=== PATIENT | female | born 1955 | race Caucasian/White ===

== ENCOUNTER 2017-11-26 14:06 | Emergency (ER) | payer MEDICARE ==
[2017-11-26] MEDS ORDERED: Morphine INJ* 2 MG/ML 1 ML CARPUJECT IV ONE (14:24)
[2017-11-26] MEDS ORDERED: NS 0.9% 1000 ML* 1,000 ML IV SCH (14:30)
--- NOTE | 2017-11-26 15:11 | RAD ---
HISTORY: Right hand and wrist injury, trauma COMPARISONS: None VIEWS: 7, Frontal, lateral, and oblique views of the right hand and wrist FINDINGS: BONE DENSITY: Normal. BONES: There is a comminuted fracture of the distal radial metaphysis with articular extension with dorsal angulation of approximately 30 degrees . JOINTS: There is osteoarthritis of the first CMC, MCP, and interphalangeal joint. ALIGNMENT: There is no dislocation. SOFT TISSUES: Unremarkable. OTHER FINDINGS: None. IMPRESSION: 1. ANGULATED COMMINUTED FRACTURE OF THE DISTAL RADIAL METAPHYSIS. 2. OSTEOARTHRITIS
[2017-11-26] MEDS ORDERED: Lidocaine 1% INJ* 10 MG/ML 30 ML SDV ONE (15:57)
--- NOTE | 2017-11-26 16:57 | RAD ---
HISTORY: Right wrist postreduction COMPARISONS: November 26, 2017 at 2:40 PM VIEWS: 2, Frontal and lateral views of the right wrist performed in a cast which obscures fine bone detail at 4:28 PM FINDINGS: BONE DENSITY: Normal. BONES: Again noted is a fracture of the distal radial metaphysis with articular extension. There has been interval reduction of the angulation. JOINTS: Again noted is osteoarthritis of the first CMC joint. ALIGNMENT: There is no dislocation. SOFT TISSUES: Unremarkable. OTHER FINDINGS: None. IMPRESSION: INTERVAL REDUCTION OF THE ANGULATION OF THE DISTAL RADIAL FRACTURE
[2017-11-26 17:25] VITALS: BP 112/76
--- NOTE | 2017-11-26 17:27 | ED ---
John Tomlin Jennifer, scribed for Dank Arevalo MD on 11/26/17 at 1426 . Upper Extremity Pain - HPI Summary HPI Summary: The patient is a 62 year old female who present with right wrist pain after she tripped over her cart today. She describes that movement of her fingers aggravates the pain, especially her right thumb, but sensation is still intact. - History of Current Complaint Stated Complaint: WRIST INJURY Hx Obtained From: Patient Mechanism Of Injury: Fall From A Standing Position Onset/Duration: Still Present Timing: Constant Severity Initially: Mild Severity Currently: None Pain Location: Wrist, Other: - Thumb Aggravating Factor(s): Movement Alleviating Factor(s): Nothing - Allergies/Home Medications Allergies/Adverse Reactions: Allergies Allergy/AdvReac Type Severity Reaction Status Date / Time MS Acetaminophen Allergy Intermediate See Comment Verified 09/18/13 13:30 [From Darvocet-N] MS Erythromycin Allergy Intermediate See Comment Verified 09/18/13 13:30 [Erythromycin] MS Propoxyphene Allergy Intermediate See Comment Verified 09/18/13 13:30 [From Darvocet-N] PMH/Surg Hx/FS Hx/Imm Hx Cardiovascular History: Reports: Hx Hypertension Neurological History: Reports: Hx Seizures - Surgical History Surgery Procedure, Year, and Place: Brain surgery x2 r/t epilesy per pt. - Family History Known Family History: Negative: Diabetes - Social History Substance Use Type: Reports: Other. Denies: Cocaine Review of Systems Positive: Other - Right wrist pain Negative: Numbness All Other Systems Reviewed And Are Negative: Yes Physical Exam - Summary Physical Exam Summary: Appearance: Cachectic appearance. Skin: Warm, Dry, No rash Eyes: Normal, PERRL, EOMI, sclera anicteric ENT: Normal Neck: Supple, nontender Respiratory: Clear to auscultation Cardiovascular: S1, S2, no murmur, no rub, no gallop Abdomen: Soft, nontender, no organomegaly Bowel sounds: Present Extremities: obvious deformity of right wrist. Ulnar, median, radial aspect sensation normal. Flexion of fingers normal. Musculoskeletal: Normal, Strength/ROM Intact, no edema, pulses symmetrical Neurological: Normal, A&Ox3, cranial nerves II-XII WNL, follows commands, gait not tested, sensation intact to pin and light touch Psychiatric: affect normal, behavior appropriate, dressed appropriately, judgment intact Triage Information Reviewed: Yes Vital Signs On Initial Exam: Initial Vitals BP 137/88 11/26/17 14:20 Vital Signs Reviewed: Yes Diagnostics - Vital Signs Vital Signs Temp Pulse Resp BP Pulse Ox 11/26/17 17:22 79 91 11/26/17 17:21 112/76 11/26/17 17:00 161/83 11/26/17 16:30 145/84 11/26/17 16:28 60 100 11/26/17 16:00 62 126/80 100 11/26/17 15:30 59 139/78 100 11/26/17 15:05 18 11/26/17 15:00 60 125/66 100 11/26/17 14:30 63 128/70 99 11/26/17 14:22 69 97 11/26/17 14:21 36.4 C 64 20 137/88 99 11/26/17 14:20 137/88 - Laboratory Lab Statement: Any lab studies that have been ordered have been reviewed, and results considered in the medical decision making process. - Radiology Hand XR Xray Interpretation: Positive (See Comments) - 1. ANGULATED COMMINUTED FRACTURE OF THE DISTAL RADIAL METAPHYSIS. 2. OSTE[address]IS. Dr. Arevalo has reviewed this report. Radiology Interpretation Completed By: Radiologist Wrist XR 1 Xray Interpretation: Positive (See Comments) - 1. ANGULATED COMMINUTED FRACTURE OF THE DISTAL RADIAL METAPHYSIS. 2. [address] Dr. Arevalo has reviewed this report. Radiology Interpretation Completed By: Radiologist Wrist XR 2 Xray Interpretation: Positive (See Comments) - INTERVAL REDUCTION OF THE ANGULATION OF THE DISTAL RADIAL FRACTURE. Dr. Arevalo has reviewed this report. Radiology Interpretation Completed By: Radiologist Course/Dx - Course Assessment/Plan: The patient is a 62 year old female who present with right wrist pain after she tripped over her cart today. In the ED course the patient was given Morphine and IV fluids. Wrist and hand X-rays showed 1. ANGULATED COMMINUTED FRACTURE OF THE DISTAL RADIAL METAPHYSIS. 2. OSTEOARTHRITIS. A second wrist X-ray showed INTERVAL REDUCTION OF THE ANGULATION OF THE DISTAL RADIAL FRACTURE. The patient is diagnosed with radial fracture of wrist. The patient is instructed to follow up with Dr. Diaz, orthopedic surgeon. The patient is prescribed oxycodone for the pain. - Diagnoses Provider Diagnoses: Fracture of radius near wrist Discharge - Discharge Plan Condition: Good Disposition: HOME Discharge Disposition Comment: to home , follow up with Dr. Diaz Prescriptions: Oxycodone HCl/Acetaminophen [Percocet 5-325 mg Tablet] 1 each PO Q8HR PRN 8 Days #25 tablet MDD 3 PRN Reason: Pain Patient Education Materials: Wrist Fracture in Adults (ED) Referrals: Laura Perez MD [Primary Care Provider] - Bennie Diaz MD [Medical Doctor] - 3 Days Additional Instructions: referral to Dr. Diaz for f/u. The documentation as recorded by the John goldsmith Jennifer accurately reflects the service I personally performed and the decisions made by me, Dank Arevalo MD.
--- NOTE | 2017-11-27 01:17 | CONS ---
ORTHOPEDIC CONSULTATION: DATE OF CONSULT: 11/26/17 REQUESTING SERVICE: Emergency room. CONSULTING SERVICE: Orthopedics. ATTENDING PHYSICIAN: Bennie Diaz MD CHIEF COMPLAINT: Right wrist pain. 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 She reports pain and deformity of the right wrist. Denies any other injury or pain anywhere else. Denies any numbness or tingling. She is right-handed. Pain is located at the wrist and is constant, moderate, sharp, worse with motion, and improved with rest. There is associated swelling and bruising. PAST MEDICAL HISTORY: Seizure disorder, hypertension, lupus, and anemia. PAST SURGICAL HISTORY: Brain surgery x2 for her seizures, calcification removed from her right arm, cholecystectomy. MEDICATIONS: 1. Ranitidine. 2. Zonisamide. 3. Oxcarbazepine. 4. Gabapentin. ALLERGIES: ACETAMINOPHEN, ERYTHROMYCIN, PROPOXYPHENE. FAMILY HISTORY: Noncontributory. SOCIAL HISTORY: She is a retired nurse. She used to work in [place] and [place]. Nonsmoker. REVIEW OF SYSTEMS: Negative for recent fever, visual changes, difficulty swallowing, chest pain, shortness of breath, abdominal pain, hematuria, easy bruising, diffuse weakness or lack of coordination, and diffuse rash. PHYSICAL EXAM: Constitutional: Her general appearance is healthy, nonseptic, and in no acute distress. Vital Signs: Pulse rate 62, oxygen saturation 100% on room air, blood pressure 126/80, respiratory rate 18. Cardiovascular: Pulse examination demonstrates positive radial pulses with brisk capillary refill. There are no varicosities. Abdomen: Soft and nontender. Lymphatic: No lymphadenopathy appreciated. Skin: Bilateral upper and lower examination revealed no ulcerative lesions. Psych/Neuro: Appropriate affect. Alert and oriented to person, place, and time. There is no significant abnormality and coordination appreciated. Normal reflexes and deep tendon reflexes in the affected extremity. Musculoskeletal: Bilateral lower extremities and contralateral upper extremities show full range of motion with no evidence of instability, no tenderness to palpation, and 5/5 strength. There is no gross deformity. In the right upper extremity, she is intact to light touch sensation. There swelling, edema, or varicosities. There is an obvious deformity with some local swelling and bruising at the wrist. Skin and nails are normal to inspection without evidence of RSD or lymphadenopathy. She is tender to palpation at the distal radius with obvious deformity. Shoulder and elbow have full painless passive and active range of motion. She has 5/5 strength with EPL, OP, first ROSHAN. Sensation is intact to light touch in the radial, median, ulnar nerve distributions, and she has a palpable radial pulse. DIAGNOSTIC STUDIES: X-rays were independently interpreted and do show a displaced distal radius fracture. IMPRESSION AND PLAN: A 62-year-old right-hand dominant woman status post mechanical fall with a right displaced distal radius fracture. The diagnosis and prognosis were reviewed. At this time, I have recommended a hematoma block at the fracture site and a closed reduction and splinting. We discussed the risks and the benefits of both these procedures at length and she decided that she would like to move forward with these. Verbal consent was obtained. PROCEDURE NOTE: 5 cc of 1% lidocaine was injected in to the distal radius fracture site under sterile condition. This provided excellent anesthesia and the skin was covered in sterile dressing afterwards. Once her pain was under control, I performed a closed reduction of her distal radius with traction and reduction maneuver. A dorsal volar splint was not applied and covered with an Marty wrap. We will get postreduction films to confirm the reduction. I will plan on seeing her back in the office next week with the new x-rays, in the splint. [id number]/[facility] #: [id number] MTDD
== END 2017-11-26 18:04 | disposition home or self-care (01) ==
LOC: ED 14:06
DX: S52.501A Unspecified fracture of the lower end of right radius, initial encounter for closed fracture (principal); W01.0XXA Fall on same level from slipping, tripping and stumbling without subsequent striking against object, initial encounter; Y92.9 Unspecified place or not applicable; Z88.5 Allergy status to narcotic agent; Z88.3 Allergy status to other anti-infective agents
CPT/HCPCS: 25600; 96374; 99282; J2270

== ENCOUNTER 2017-12-03 09:22 | Day surgery (SDC) | payer MEDICARE ==
[~2017-12-03 09:22] MED LIST: Buffered Lidocaine 0.9% SYRIN* 5 ML/SYR SYRINGE INTRADERM ONE; Bupivacaine 0.25% SDV* 30 ML ONE; Famotidine IV* 10 MG/ML 2 ML (20 mg) IV ONE; Lidocaine 1% INJ* 10 MG/ML 30 ML SDV ONE; ROPIVACAINE 5 MG/ML 30 ML BTL (0.5%) ONE
[2017-12-03] MEDS ORDERED: ceFAZolin 2 GM PREMIX (*) 2 GM/50 ML BAG IVPB ONE (09:29)
[2017-12-03] MEDS ORDERED: Famotidine IV* 10 MG/ML 2 ML (20 mg) ONE (09:29)
[2017-12-03] MEDS ORDERED: ROPIVACAINE 5 MG/ML 30 ML BTL (0.5%) ONE (09:59)
[2017-12-03] MEDS ORDERED: Lidocaine 1% MPF* 2 ML VIAL ONE (10:00)
[2017-12-03] MEDS ORDERED: Midazolam* 1 MG/ML 2 ML VIAL (2 MG) ONE (10:01)
[2017-12-03] MEDS ORDERED: fentaNYL* 50 MCG/ML 2 ML VIAL (100 MCG VIAL) ONE (10:01)
[2017-12-03] MEDS ORDERED: DiMENhydriNATE IV* 50 MG/ML VIAL IV PUSH PRN (11:27)
[2017-12-03] MEDS ORDERED: oxyCODONE TAB* 5 MG TAB PO PRN (11:27)
[2017-12-03] MEDS ORDERED: Naloxone* 0.4 MG/ML 1 ML VIAL IV PRN (11:27)
[2017-12-03] MEDS ORDERED: Acetaminophen TAB* 325 MG PO PRN (11:27)
[2017-12-03] MEDS ORDERED: HYDROmorphone INJ* 1 MG/ML CARPUJECT SYRINGE IV PRN (11:27)
[2017-12-03] MEDS ORDERED: Phenylephrine INJ* 10 MG/ML 1 ML VIAL (10 MG) ONE (11:30)
[2017-12-03] MEDS ORDERED: Dexamethasone IV* 4 MG/ML 1 ML (4 MG) ONE (12:08)
[2017-12-03] MEDS ORDERED: Ondansetron INJ* 2 MG/ML VIAL ONE (12:08)
[2017-12-03] MEDS ORDERED: Propofol* 10 MG/ML 20 ML BTL IV PUSH ONE (12:08)
[2017-12-03] MEDS ORDERED: Lidocaine 2% PF * 5 ML VIAL ONE (12:08)
[2017-12-03] MEDS ORDERED: Ketorolac INJ* 30 MG/ML 1 ML VIAL ONE (12:08)
[2017-12-03 13:04] VITALS: BP 168/85
[2017-12-03] MEDS ORDERED: oxyCODONE/Acetamin 5/325 MG* TAB ONE (13:07)
--- NOTE | 2017-12-04 14:58 | RAD ---
INDICATION: Right hand injury, right wrist injury COMPARISONS: November 26, 2012 TECHNIQUE: Fluoroscopy was provided for a surgical procedure. Total fluoroscopy time is: 29 seconds FINDINGS: Spot images demonstrate internal fixation of the distal radius. IMPRESSION: FLUOROSCOPY WAS PROVIDED FOR A SURGICAL PROCEDURE CPT II Codes: 6045F
--- NOTE | 2017-12-06 04:46 | OP ---
DATE OF OPERATION: 12/03/17 - [facility] DATE OF : 51 SURGEON: Gama Jerome MD. SALES SERVICE EXECUTIVE: ROYA Butler. An operator assistant i cementing was needed for the entirety of the procedure to aid in positioning of the arm and retraction. ANESTHESIOLOGIST: Dr. Mistry. ANESTHESIA: Peripheral nerve block with general. PRE-OP DIAGNOSIS: Displaced right, greater than 3-fragment intraarticular distal radius fracture. POST-OP DIAGNOSIS: Displaced right, greater than 3-fragment intraarticular distal radius fracture. OPERATIVE PROCEDURE: Open reduction and internal fixation, right intraarticular , greater than 3-fragment distal radius fracture. INDICATIONS: Lucia is a 62-year-old female who had a displaced intraarticular distal radius fracture. She fractured the arm at some point, may be 10 years ago. The fracture was clearly displaced and extended up intra- articularly. I had talked to Lucia about fixing the fracture, told her that was the best thing to go ahead and try to get it back out to length as it was sitting short and impacted and also dorsally translated. She understood the risks and benefits including the risk of infection and loss of fixation. She wants to proceed. ESTIMATED BLOOD LOSS: 5 mL. COMPLICATIONS: None. FINDINGS: As expected. DESCRIPTION OF PROCEDURE: Lucia was seen in the preoperative holding area. The correct side, site, and procedure were identified. We came back to the operating room and the arm was prepped and draped in the usual fashion. She had received a nerve block. A time-out was performed. I began by making a longitudinal incision over the distal FCR tendon. Dissection was carried down. The sheath was opened and the tendon was retracted ulnarly and the subsheath was opened. The pronator quadratus was exposed and released up to radial margin of the radius and teed back transversely preserving the distal 3 to 4 mm of volar extrinsic capsular ligaments. The fracture site was mobilized and debrided. It was sitting quite bayonetted with significant overlap of the volar cortex. I hung the arm in 10 pounds of traction. We had a very difficult time getting it back out to length. This was possibly related to a prior fracture. I went ahead and had released the brachioradialis tendon. I dissected out the dorsal periosteum on the dorsum of the radius and I went ahead and released this with my tenotomy scissors. After release of the dorsal periosteum, I was able to get the fracture brought out to length after I had hung the arm in 15 pounds of traction. Once I was able to get the volar cortices opposed and reduced anatomically, I went ahead and examined my fracture. It was a longitudinal split through the shaft of the fracture that tapered out a couple of centimeters proximal and did not exit out volarly or ulnarly. I did not want this fracture line to propagate and so I went ahead and placed a 2.7 mm lag screw from radial to ulnar. I had initially tried to place one little bit more distally, but there was not good purchase, and so I came just a bit more proximal and placed the lag screw in countersunk type fashion. It provided excellent compression and really secured the split in the sagittal plane so that the crack cannot propagate. After that was secured, I went ahead and brought in my Synthes variable angle distal radius plate, placed it in the correct position and this was pinned into place. Fluoroscopic imaging confirmed reduction of the fracture and good plate position. I then placed 1 screw in the oblong hole. I then placed another cortical screw and then 2 more cortical screws. All these had excellent purchase. I came distal and placed my distal row screws including 3 in straight locking fashion and the more radial styloid screw as a variable angle locking screw. I then placed the 2 additional screws in the 2 remaining distal holes. These were all locking screws. At this point, I checked my final fluoroscopic imaging. Everything was looking good. The alignment of the bone was very nicely corrected. If she had had a prior malunion, the bone was now in anatomic position. We irrigated out the wound. The pronator was very badly injured, but I did repair some of it with 3-0 Vicryl suture. Subcutaneous tissue was reapproximated with 3-0 Vicryl suture. The skin was closed with 4-0 Monocryl and Steri-Strips. I went ahead and infiltrated the operative area with 0.25% plain Marcaine. The wound was dressed with 4x4 sterile Webril and a volar cockup wrist splint was applied. She was then woken up and taken to the recovery room in stable condition. Tourniquet had been used 250 mmHg throughout the procedure. [id number]/[facility] #: [id number] [facility]OSPITALAna
== END 2017-12-03 13:48 | disposition home or self-care (01) ==
LOC: OREAST 09:22
PROVIDERS: ATTEND Orthopaedic Surgery Hand Surgery
DX: S52.571A Other intraarticular fracture of lower end of right radius, initial encounter for closed fracture (principal); S83.92XA Sprain of unspecified site of left knee, initial encounter; W00.2XXA Other fall from one level to another due to ice and snow, initial encounter; Y92.488 Other paved roadways as the place of occurrence of the external cause; I10 Essential (primary) hypertension; D64.9 Anemia, unspecified; Z72.0 Tobacco use; G89.18 Other acute postprocedural pain; I65.23 Occlusion and stenosis of bilateral carotid arteries
CPT/HCPCS: 76000; A9270-GY; C1713; C1776; J0690; J1100; J1885; J2250; J2405; J2704; J2795; J3010

== ENCOUNTER 2017-12-08 11:39 | Emergency (ER) | payer MEDICARE ==
[2017-12-08 12:12] VITALS: BP 158/86
--- NOTE | 2017-12-08 13:41 | UC ---
Hip/Pelvis Pain - HPI Summary HPI Summary: Pt presents with left hip pain s/p fall 2 weeks ago. She tells me that has a left hip replacement and is worried that something is broken. She has had mild pain in her left buttock and hip since the fall 2 weeks ago where she tells me she had a seizure and fell - breaking her right arm. She was seen in the ED, but her hip did not hurt at the time. Denies numbness, tingling, or weakness. - History Of Current Complaint Chief Complaint: UCLowerExtremity Stated Complaint: HIP INJURY Time Seen by Provider: 12/08/17 13:25 Hx Obtained From: Patient Onset/Duration: Gradual Onset Timing: Constant Severity Initially: Mild Severity Currently: Mild Pain Intensity: 3 Pain Scale Used: 0-10 Numeric Character Of Pain: Dull, Aching Aggravating Factor(s): Movement - Allergies/Home Medications Allergies/Adverse Reactions: Allergies Allergy/AdvReac Type Severity Reaction Status Date / Time acetaminophen Allergy See Comment Verified 12/08/17 12:13 erythromycin base Allergy See Comment Verified 12/08/17 12:13 propoxyphene Allergy See Comment Verified 12/08/17 12:13 Home Medications: Home Medications Alendronate (NF) [Fosamax (NF)] 12/08/17 [History] Ferrous Sulfate 1 tab PO BID 12/08/17 [History Confirmed 12/08/17] Ibuprofen 2 tab PO Q4HR PRN 12/08/17 [History Confirmed 12/08/17] Polyethylene Glycol 3350* [Miralax*] 1 cap PO DAILY PRN 12/08/17 [History Confirmed 12/08/17] Pseudoephedrine HCl [Sudafed] 2 tab PO Q6HR PRN 12/08/17 [History Confirmed ] PMH/Surg Hx/FS Hx/Imm Hx Previously Healthy: Yes Endocrine History: Dyslipidemia Cardiovascular History: Hypertension GI/ History: Gastroesophageal Reflux Neurological History: Seizures - Surgical History Surgical History: Yes Surgery Procedure, Year, and Place: Brain surgery x2 r/t epilesy per pt. LEFT HIP 2 YEARS AGO [facility] - Family History Known Family History: Negative: Diabetes - Social History Alcohol Use: None Substance Use Type: None Smoking Status (MU): Light Every Day Tobacco Smoker Type: Cigarettes Amount Used/How Often: 1/2 PPD Length of Time of Smoking/Using Tobacco: 30 YEARS Have You Smoked in the Last Year: Yes Household Exposure Type: Cigarettes Review of Systems Constitutional: Negative Skin: Negative Respiratory: Negative Cardiovascular: Negative Gastrointestinal: Negative Musculoskeletal: Other: - Left hip pain Neurological: Negative Psychological: Negative All Other Systems Reviewed And Are Negative: Yes Physical Exam Triage Information Reviewed: Yes Appearance: Well-Appearing, No Pain Distress, Well-Nourished Vital Signs: Initial Vital Signs Temp 97.6 F 12/08/17 12:05 Pulse 95 12/08/17 12:05 Resp 16 12/08/17 12:05 BP 158/86 12/08/17 12:05 Pulse Ox 100 12/08/17 12:05 Vital Signs Reviewed: Yes Neck: Positive: Supple, Nontender, No Lymphadenopathy Respiratory: Positive: Lungs clear, Normal breath sounds, No respiratory distress, No accessory muscle use Cardiovascular: Positive: RRR, No Murmur, Pulses Normal Musculoskeletal: Positive: Strength Intact - B/L LEs, ROM Intact - B/L LEs, No Edema - Left hip, Other: - Mild TTP over left hip. No obvious bony deformity. Neurological: Positive: Alert, Other: - Sensations intact b/l LEs L3-S1. Psychological: Positive: Age Appropriate Behavior Skin: Negative: rashes, significant lesion(s) Hip Injury Course/Dx - Course Course Of Treatment: Hip XR: IMPRESSION: Left hip replacement in satisfactory position. Suspect soft tissue contusion of left hip. Pt says she does not want any medication and will continue to take ibuprofen - just wanted to be sure nothing was broken. - Differential Dx/Diagnosis Provider Diagnoses: Left hip pain Discharge - Discharge Plan Condition: Stable Disposition: HOME Patient Education Materials: Hip Pain (ED) Referrals: Laura Perez MD [Primary Care Provider] - Additional Instructions: If you develop a fever, shortness of breath, chest pain, new or worsening symptoms - please call your PCP or go to the ED. Your blood pressure was high at todays visit. Please see your primary provider within 4 weeks for recheck and re-evaluation.
--- NOTE | 2017-12-08 14:01 | RAD ---
Indication: Left hip pain after fall. 2 views of left hip and an AP view the pelvis demonstrates bipolar left hip arthroplasty in satisfactory position. No loosening is noted. IMPRESSION: Left hip replacement in satisfactory position.
== END 2017-12-08 14:17 | disposition home or self-care (01) ==
LOC: UCEAST 11:39
DX: M25.552 Pain in left hip (principal); E78.5 Hyperlipidemia, unspecified; I10 Essential (primary) hypertension; K21.9 Gastro-esophageal reflux disease without esophagitis; R56.9 Unspecified convulsions; Z96.642 Presence of left artificial hip joint; Z88.6 Allergy status to analgesic agent; Z88.8 Allergy status to other drugs, medicaments and biological substances; F17.210 Nicotine dependence, cigarettes, uncomplicated
CPT/HCPCS: 99212; G0463

== ENCOUNTER 2019-04-13 18:45 | Inpatient (IN) | payer MEDICARE ==
--- NOTE | 2019-04-13 19:03 | ED ---
Abdominal Pain/Female - HPI Summary HPI Summary: A 63 y/o female presents to [facility] with a chief complaint of sudden onset, stabbing, LLQ abdominal pain since 16:30 today. At triage she rated her pain as a 6/10 in severity. She reports pain radiating to her back. She denies any burning or pain when she urinates, black or bloody stools, SOB, palpitations, headache, runny nose, sore throat, cough, swelling in her legs, or changes in vision. She notes some nausea without vomiting and claims that she had a normal BM this morning. She also reports that she was near syncopal when she felt like she was going to have a BM today. She was not pushing very hard but felt lightheaded and claims that it was hot in the bathroom. She had an open cholecystectomy in the . She also reports chronic left hip pain since her hip replacement surgery 3 years ago. - History of Current Complaint Chief Complaint: EDAbdPain Stated Complaint: ABD PAIN PER EMS Time Seen by Provider: 04/13/19 18:54 Hx Obtained From: Patient Onset/Duration: Sudden Onset, Lasting Hours, Still Present Timing: Constant Severity Initially: Moderate Severity Currently: Moderate Pain Intensity: 6 Pain Scale Used: 0-10 Numeric Location: Discrete At: LLQ Radiates: Yes Radiates to: Back Character: Sharp Aggravating Factor(s): Nothing Alleviating Factor(s): Nothing Associated Signs and Symptoms: Positive: Back Pain, Nausea. Negative: Fever, Cough, Blood in Stool, Urinary Symptoms, Vomiting Allergies/Adverse Reactions: Allergies Allergy/AdvReac Type Severity Reaction Status Date / Time loratadine [From Claritin] Allergy Unknown Verified 04/13/19 18:53 Reaction Details Tetracyclines Allergy Unknown Verified 04/13/19 18:53 Reaction Details acetaminophen AdvReac See Comment Verified 04/13/19 18:53 erythromycin base AdvReac See Comment Verified 04/13/19 18:53 propoxyphene AdvReac See Comment Verified 04/13/19 18:53 Home Medications: Home Medications Fluticasone NASAL SPRAY 50MCG* [Flonase NASAL SPRAY 50MCG*] 2 spray BOTH NARES DAILY 04/13/19 [History Confirmed 04/13/19] Hydroxychloroquine TAB* [Plaquenil TAB*] 200 mg PO DAILY 04/13/19 [History Confirmed 04/13/19] Omeprazole CAP(NF) [PriLOSEC CAP(NF)] 20 mg PO DAILY PRN 04/13/19 [History Confirmed 04/13/19] Pseudoephedrine HCl [Sudogest] 60 mg PO DAILY PRN 04/13/19 [History Confirmed ] Tacrolimus 0.1% OINT (NF) 1 applic TOPICAL DAILY 04/13/19 [History Confirmed ] Tamsulosin CAP* [Flomax CAP*] 0.4 mg PO DAILY 04/13/19 [History Confirmed ] PMH/Surg Hx/FS Hx/Imm Hx Endocrine/Hematology History: Reports: Hx Anemia Cardiovascular History: Reports: Hx Hypertension - ON MEDICATION, Other Cardiovascular Problems/Disorders - CARTOID STENOSIS, HIGH CHOLESTEROL AND CVA GI History: Reports: Hx Gastroesophageal Reflux Disease - ON MEDICATION History: Reports: Other Problems/Disorders - UTI Denies: Hx Kidney Infection, Hx Kidney Stones Musculoskeletal History: Reports: Hx Arthritis Sensory History: Reports: Hx Contacts or Glasses - GLASSES Denies: Hx Hearing Aid Opthamlomology History: Reports: Hx Contacts or Glasses - GLASSES Neurological History: Reports: Hx Seizures - EPILEPSY - Surgical History Surgery Procedure, Year, and Place: Brain surgery x2 r/t epilesy per pt. CHOLECYSTECTOMY. LEFT HIP 2 YEARS AGO [facility] Hx Anesthesia Reactions: No Infectious Disease History: No Infectious Disease History: Denies: Traveled Outside the [place] in Last 30 Days - Family History Known Family History: Negative: Diabetes - Social History Alcohol Use: None Substance Use Type: Reports: None Smoking Status (MU): Light Every Day Tobacco Smoker Type: Cigarettes Amount Used/How Often: 1/2 PPD Length of Time of Smoking/Using Tobacco: 30 YEARS Have You Smoked in the Last Year: Yes Review of Systems Negative: Fever Positive: Other - negative: vision changes Negative: Sore Throat Negative: Palpitations Negative: Shortness Of Breath, Cough Positive: Abdominal Pain, Nausea, Other - negative: blood in stool. Negative: Vomiting Negative: dysuria Positive: Other - positive: chronic left hip pain Negative: Headache All Other Systems Reviewed And Are Negative: Yes Physical Exam - Summary Physical Exam Summary: Constitutional: Well-developed, Well-nourished, Alert. (-) Distressed Skin: Warm, Dry HENT: Normocephalic; Atraumatic Eyes: Conjunctiva normal Neck: Musculoskeletal ROM normal neck. (-) JVD, (-) Stridor, (-) Tracheal deviation Cardio: Rhythm regular, rate normal, Heart sounds normal; Intact distal pulses; The pedal pulses are 2+ and symmetric. Radial pulses are 2+ and symmetric. Pulmonary/Chest wall: Effort normal. (-) Respiratory distress, (-) Wheezes, (-) Rales Abd: linear, well healed, old surgical scar RUQ status post cholecystectomy, LLQ tenderness to light, moderate and deep palpation, no guarding, rebound or distention. Belly is scaphoid 40. Musculoskeletal: (-) Edema Neuro: Alert, Oriented x3 Psych: Mood and affect Normal Triage Information Reviewed: Yes Vital Signs On Initial Exam: Initial Vitals Temp Pulse Resp BP Pulse Ox 98.1 F 81 17 164/88 100 04/13/19 18:48 04/13/19 18:48 04/13/19 18:48 04/13/19 18:48 04/13/19 18:48 Vital Signs Reviewed: Yes Diagnostics - Vital Signs Vital Signs Temp Pulse Resp BP Pulse Ox 04/13/19 18:48 98.1 F 81 17 164/88 100 - Laboratory Result Diagrams: 04/13/19 19:51 04/13/19 19:51 Lab Statement: Any lab studies that have been ordered have been reviewed, and results considered in the medical decision making process. - CT abdomen/pelvis CT Interpretation Completed By: Radiologist Summary of CT Findings: 1. Moderately obstructing 7 mm calculus proximal third left ureter. 2. Bilateral nephrolithiasis. 3. Mild emphysema. 4. Constipation. ED physician has reviewed this imaging report. - EKG 20:02 Cardiac Rate: NL - 79 bpm EKG Rhythm: Sinus Rhythm Ectopy: None Summary of EKG Findings: NSR at 79 bpm, Q waves anterior, no prior for comparision, no ectopy, left axis, no STEMI. Abdominal Pain Fem Course/Dx - Course Course Of Treatment: A 63 y/o female presents to [facility] with a chief complaint of sudden onset, stabbing, LLQ abdominal pain since 16:30 today. The physical exam revealed a linear, well healed, old surgical scar RUQ status post cholecystectomy, LLQ tenderness to light, moderate and deep palpation, no guarding, rebound or distention. Belly is scaphoid 40. EKG at 20:02 showed NSR at 79 bpm, Q waves anterior, no prior for comparision, no ectopy, left axis, no STEMI. In the ED course the patient was given Pepcid IV, Fentanyl IV, Iodixanol IV and Zofran IV. Blood work and chemistries obtained. Abdomen/pelvis CT impression: 1. Moderately obstructing 7 mm calculus proximal third left ureter. 2. Bilateral nephrolithiasis. 3. Mild emphysema. 4. Constipation. Bloodwork , chemistries and urines obtaiend. Urines showed some urine blood, urine leukocyte esterase, some RBC, WBC, bacteria, and Squamous Epith Cells present. She will be treated with Ceftriaxone. Discussed case with Dr. Huerta, urologist, who recommended speaking with the hospitalist. Discussed case with Dr. Donis, hospitalist, who accepted the patient for admission. Abx given. The patient will be admitted. The patient agrees with this plan. - Diagnoses Provider Diagnoses: UTI (urinary tract infection), Ureteral calculus, left, Cachexia - Provider Notifications Discussed Care Of Patient With: Favian Huerta Time Discussed With Above Provider: 23:06 Instructed by Provider To: Other - recommends discussing case with hospitalist Discharge - Sign-Out/Discharge Documenting (check all that apply): Patient Departure - admit Patient Received Moderate/Deep Sedation with Procedure: No - Discharge Plan Condition: Fair Disposition: ADMITTED TO [facility] - Billing Disposition and Condition Condition: FAIR Disposition: Admitted to [facility] - Attestation Statements Document Initiated by Shira: Yes Documenting Scribe: Frank Coello Provider For Whom Shira is Documenting (Include Credential): Juan Ramon Melendez MD Scribe Attestation: Frank Tomlin, scribed for Juan Ramon Melendez MD on 04/14/19 at 0558. Scribe Documentation Reviewed: Yes Provider Attestation: The documentation as recorded by the Frank goldsmith accurately reflects the service I personally performed and the decisions made by me, Juan Ramon Melendez MD Status of Scribe Document: Viewed Consult Consult: At 11:[address] Donis, hospitalist, who accepted the patient for admission.
[2019-04-13] MEDS ORDERED: fentaNYL* 50 MCG/ML 2 ML VIAL (100 MCG VIAL) IV SLOW PU ONE ×2 (19:11→21:02)
[2019-04-13] MEDS ORDERED: Ondansetron INJ* 2 MG/ML VIAL IV ONE ×2 (19:11→21:02)
[2019-04-13] MEDS ORDERED: Famotidine IV* 10 MG/ML 2 ML (20 mg) IV SLOW PU ONE (19:13)
[2019-04-13 19:58] LABS: ABS Eosinophils 0.4 10^3/ul (0-0.6); ABS Lymphocytes 0.5 10^3/ul (1.0-4.8); ABS Monocytes 0.1 10^3/ul (0-0.8); Eosinophil % 5.3 %; Hematocrit 36 % (35-47); Hemoglobin 12.2 g/dL (12.0-16.0); Lymphocyte % 5.7 %; Mean Corpuscular HGB Conc 34 g/dL (31-36); Mean Corpuscular Hemoglobin 32 pg (27-31); Mean Corpuscular Volume 94 fL (80-97); Mean Platelet Volume 7.3 fL (7.4-10.4); Platelet Count 355 10^3/uL (150-450); Red Blood Count 3.81 10^6 /uL (3.70-4.87); Red Cell Distribution Width 13 % (10-15); White Blood Count 8.1 10^3/uL (3.5-10.8)
[2019-04-13] MEDS ORDERED: Lactated Ringers 1000 ML Bag* 1,000 ML IV SCH ×2 (20:00→23:45)
[2019-04-13 20:18] LABS: ALT 15 U/L (7-52); AST 21 U/L (13-39); Albumin 4.3 g/dL (3.2-5.2); Albumin/Globulin Ratio 1.4 (1-3); Alkaline Phosphatase 101 U/L (34-104); Anion Gap 8 mmol/L (2-11); BUN/Creatinine Ratio 24.3 (8-20); Blood Urea Nitrogen 28 mg/dL (6-24); C Reactive Protein < 1.00 mg/L (<8.01); CO2 Carbon Dioxide 25 mmol/L (22-32); Calcium 9.5 mg/dL (8.6-10.3); Chloride 96 mmol/L (101-111); EGFR African American 57.3 (>60); EGFR Non-African American 47.4 (>60); Glucose 119 mg/dL (70-100); Potassium 4.2 mmol/L (3.5-5.0); Sodium 129 mmol/L (135-145); Total Protein 7.3 g/dL (6.4-8.9)
[2019-04-13] MEDS ORDERED: Iodixanol* (CONTRAST) 320 MG/ML 100 ML SDV IV ONE (20:21)
[2019-04-13 21:03] LABS: Urine Appearance Cloudy; Urine Bacteria 1+ (Absent); Urine Bilirubin Negative (Negative); Urine Blood 1+ (Negative); Urine Color Yellow; Urine Glucose Negative (Negative); Urine Ketones Negative (Negative); Urine Nitrite Negative (Negative); Urine Protein Negative (Negative); Urine Red Blood Cell 3+(>10/hpf) (Absent); Urine Specific Gravity 1.008 (1.010-1.030); Urine Squamous Epithelial Cell Present (Absent); Urine Urobilinogen Negative (Negative); Urine White Blood Cell 3+(>20/hpf) (Absent)
[2019-04-13] MEDS ORDERED: cefTRIAXone(*) 1 GM in NS 0.9% 50 ML* 50 ML IVPB ONE (23:09)
[2019-04-13] MEDS ORDERED: Ondansetron INJ* 2 MG/ML VIAL IV PRN (23:58)
[2019-04-13] MEDS ORDERED: Morphine 4 MG/ML VIAL (1 ml) 4 MG/ML VIAL IV PRN (23:58)
[2019-04-14] MEDS ORDERED: Polyethylene Glycol 3350* 17 GM PACKET PO PRN
[2019-04-14] MEDS ORDERED: Pantoprazole TAB * 40 MG TAB PO PRN
[2019-04-14] MEDS ORDERED: Ibuprofen TAB* 400 MG PO PRN
--- NOTE | 2019-04-14 01:48 | HP ---
History of Present Illness - History of Present Illness Reason for Visit: Left upper quadrant pain History of Present Illness: PCP: Chris Patient is a 63 year old woman with history of renal stones who developed left upper quadrant pain around 3 pm this afternoon. The pain refers to her back. She did not note any change in bowel habits, she had a normal BM this morning. She did not have dysuria or hematuria. She has not noted any fevers, but she did have chills this afternoon. She has had kidney stones in the past, which have required cystoscopy/stent/ retrieval. - Past Medical History Cardiac: HTN, Hyperlipidemia [employer]: CVA - 2001, Seizure, Other - carotid stenosis Heme/Onc: Anemia NOS Rheumatologic: Other - systemic lupus Endocrine: Osteoporosis - Past Surgical History Past Surgical History: Cholecystectomy - open , Other - brain surgery X2 due to epilepsy, Total Hip Replacement - left 2015 - Past Family History Family History: Cancer - father of colon cancer, mother estranged, Hypertension - brother - Past Social History Smoke: <1 pack per day - for >30 years Occupation: retired nurse Alcohol: None Drugs: None Lives: Alone Domestic Violence: Negative Review of Systems - Measurements Intake and Output: Intake and Output Last 24 Hours 04/11/19 04/12/19 04/13/19 04/14/19 06:59 06:59 06:59 06:59 Intake Total 1100 Balance 1100 Weight 47.627 kg Intake: IV Fluids 1050 IVPB 50 Other: Date of Last Bowel 04/12/19 Movement - Review of Systems Constitutional Symptoms: Positive: Weight Loss - 5 lbs in last month, chronic weight loss for 10 years, Fatigue Negative: Fever, Night Sweats Dermatology: Positive: Other - recurrent open wound on scalp, since brain surgery HEENT: Positive: Normal Eyes: Positive: Normal Thyroid: Positive: Normal Pulmonary: Positive: Normal Cardiology: Positive: Normal Gastroenterology: Positive: Abdominal Pain, Nausea Negative: Change in Bowel Habits Genital - Urinary: Negative: Dysuria, Hematuria Genitourinay - Female: Positive: Menopause Musculoskeletal: Positive: Osteoporosis Endocrinology: Positive: Normal Neurology: Positive: Hx of Seizures Psychiatry: Positive: Normal Allergic/Immunologic: Positive: Immunocompromise, Other - h/o lupus Objective Active Medications: Home Medications: Atorvastatin Calcium (Lipitor*) 20 mg PO BEDTIME [facility] Folic Acid (Folvite Tab*) 1 mg PO QAM [facility] Ibuprofen (Motrin Tab*) 400 mg PO Q4H PRN PRN Reason: PAIN Lisinopril (Prinivil Tab*) 5 mg PO QAM [facility] Morphine Sulfate (Morphine 4 Mg/Ml Vial (1 Ml)) 3 mg IV Q3H PRN PRN Reason: PAIN Ondansetron HCl (Zofran Inj*) 4 mg IV Q6H PRN PRN Reason: NAUSEA Oxcarbazepine (Trileptal Tab(*)) 300 mg PO BID [facility] Pantoprazole Sodium (Protonix Tab*) 40 mg PO DAILY PRN PRN Reason: INDIGESTION Polyethylene Glycol/Electrolytes (Miralax*) 17 gm PO DAILY PRN PRN Reason: CONSTIPATION Tamsulosin HCl (Flomax Cap*) 0.4 mg PO DAILY [facility] Zonisamide (Zonegran (Nf)) 300 mg PO BID [facility] Conjugated Estrogens VAG CM* [Premarin VAG CREAM*] 1 applic VAGINAL BEDTIME [facility]-3 Fatty Acids (Nf) [Fish Oil (NF)] 3 tab PO QPM 12/01/17 Fluticasone NASAL SPRAY 50MCG* [Flonase NASAL SPRAY 50MCG*] 2 spray BOTH NARES DAILY 04/13/19 Hydroxychloroquine TAB* [Plaquenil TAB*] 200 mg PO DAILY 04/13/19 Vital Signs - 8 hr 04/13/19 04/13/19 04/13/19 18:48 18:57 18:59 Temperature 36.7 C Pulse Rate 81 82 80 Respiratory 17 Rate Blood Pressure 164/88 168/92 (mmHg) O2 Sat by Pulse 100 98 86 Oximetry 04/13/19 04/13/19 04/13/19 21:58 22:00 22:28 Temperature Pulse Rate 111 114 98 Respiratory Rate Blood Pressure 173/91 124/66 (mmHg) O2 Sat by Pulse 97 98 99 Oximetry 04/13/19 04/14/19 04/14/19 23:30 00:30 00:59 Temperature 37.3 C 37.4 C Pulse Rate 96 89 89 Respiratory 18 17 17 Rate Blood Pressure 128/68 134/78 134/78 (mmHg) O2 Sat by Pulse 98 98 98 Oximetry Oxygen Devices in Use Now: None Appearance: cachectic, no distress, temporal wasting present Eyes: No Scleral Icterus Ears/Nose/Mouth/Throat: NL Teeth, Lips, Gums, Clear Oropharnyx, Mucous Membranes Moist Neck: NL Appearance and Movements; NL JVP, Trachea Midline Respiratory: Symmetrical Chest Expansion and Respiratory Effort, Clear to Auscultation Cardiovascular: NL Sounds; No Murmurs; No JVD, RRR Abdominal: No Hepatosplenomegaly, - - soft, tender LUQ, +BS Lymphatic: No Cervical Adenopathy, No Axillary Adenopathy Extremities: No Edema Skin: No Rash or Ulcers Neurological: Alert and Oriented x 3 Lines/Tubes/Other Access: Clean, Dry and Intact Peripheral IV Nutrition: Taking PO's Result Diagrams: 04/13/19 19:51 04/13/19 19:51 Additional Lab and Data: Laboratory Tests 04/13/19 04/13/19 04/13/19 10:40 19:51 20:38 Glucose 119 H Lactic Acid 0.5 AST 21 ALT 15 Troponin I 0.00 C-Reactive Protein < 1.00 Lipase 29 Urine Color Yellow Urine Appearance Cloudy Ur Specific [place] 1.008 L Urine Blood 1+ A Urine Nitrate Negative Ur Leukocyte Esterase 1+ A Urine WBC (Auto) 3+(>20/hpf) A Urine RBC (Auto) 3+(>10/hpf) A Ur Squamous Epith Cells Present A Urine Bacteria 1+ A Diagnostic Imaging: CT abdo/pelvis: impacted stone left distal ureter, 7mm, with some hydronephrosis EKG Data: Normal sinus rhythm, normal axis, poor R-wave progression in V2-3, possible old AMI Assess/Plan/Problems-Billing Assessment: 63 year old woman with infected and impacted LEFT ureteral stone - Patient Problems (1) Ureteral calculus, left Current Visit: Yes Status: Acute Priority: High Code(s): N20.1 - CALCULUS OF URETER SNOMED Code(s): 56168333 Comment: -Patient at high risk of sepsis since urine appears infected and stone not passing. -She will be admitted to medical service, and we will consult with Dr. Sandoval of urology -Plan is for her to have cystoscopy/stent on 04/14. -Will treat UTI with ceftriazone, narrow coverage once culture returns. (2) UTI (urinary tract infection) Current Visit: Yes Status: Acute Priority: Medium Comment: -as above -Will have IV saline to prevent dehydration while NPO (3) Cachexia Current Visit: Yes Status: Chronic Priority: Medium Code(s): R64 - CACHEXIA SNOMED Code(s): 947219308 Comment: -Patient has signs of protein-calorie malnutrion -This is chronic issue, suspect anorexia nervosa vs malignancy (4) Hypertension Current Visit: Yes Status: Acute Priority: Medium Code(s): I10 - ESSENTIAL (PRIMARY) HYPERTENSION SNOMED Code(s): 28141030 Comment: -Will continue outpatient regimen, appears well-controlled. (5) Seizure disorder Current Visit: Yes Status: Acute Priority: Low Code(s): G40.909 - EPILEPSY , UNSP, NOT INTRACTABLE, WITHOUT STATUS EPILEPTICUS SNOMED Code(s): 377536629 Comment: -Will continue oxcarbazepine as in outpatient setting. (6) DVT prophylaxis Current Visit: Yes Status: Acute Priority: Low Code(s): Z29.9 - ENCOUNTER FOR PROPHYLACTIC MEASURES, UNSPECIFIED SNOMED Code(s): 746081128 Comment: -Moderate risk, will use SCDs Status and Disposition: inpatient
[2019-04-14] MEDS: OXcarbazepine TAB(*) 300 MG PO SCH ×5 (01:58→19:32)
[2019-04-14] MEDS: CMCS:Zonisamide (NF) 50 MG CAP PO SCH ×3 (08:37→19:32)
[2019-04-14] MEDS: Folic Acid TAB* 1 MG PO SCH (08:37)
[2019-04-14] MEDS: NS 0.9% 1000 ML** 1,000 ML IV SCH ×3 (08:37→21:52)
[2019-04-14] MEDS: Lisinopril TAB* 5 MG PO SCH ×2 (08:38)
[2019-04-14] MEDS ORDERED: Tamsulosin CAP* 0.4 MG PO SCH (09:00)
[2019-04-14] MEDS ORDERED: NS 0.9% 1000 ML** 1,000 ML IV ONE (10:11)
[2019-04-14] MEDS ORDERED: Famotidine IV* 10 MG/ML 2 ML (20 mg) ONE (11:38)
[2019-04-14] MEDS ORDERED: Dexamethasone IV* 4 MG/ML 1 ML (4 MG) ONE (11:38)
[2019-04-14] MEDS ORDERED: Iohexol 180 (CONTRAST) 10 ML SDV IV ONE (11:52)
[2019-04-14] MEDS ORDERED: cefTRIAXone(*) 1 GM ADVAN/BAG ONE (12:27)
--- NOTE | 2019-04-14 13:09 | PN ---
Hospitalist Progress Note Date of Service: 04/14/19 Case discussed with anesthesiology. Lucia continues to be very drowsy. I attempted to call her sister, who did not answer. I called her friend Catherine, who clarifies that she is the healthcare proxy. She explains that the bandage on her head is from an old surgery in 1985 and 1999 and the skin occasionally "opens up" so she puts a bandage on it. Catherine does not believe Lucia has had a seizure in years, but she believes she has two types of seizures--one when her arm shakes and one when when she gets "out of it." I reviewed Dr. Oliveira's most recent note and verified her medications. I would like to get an EEG stat and labs stat and postpone surgery until we get these results.
[2019-04-14 13:27] LABS: Hematocrit 33 % (35-47); Hemoglobin 10.9 g/dL (12.0-16.0); Mean Corpuscular HGB Conc 34 g/dL (31-36); Mean Corpuscular Hemoglobin 32 pg (27-31); Mean Corpuscular Volume 95 fL (80-97); Mean Platelet Volume 7.8 fL (7.4-10.4); Platelet Count 207 10^3/uL (150-450); Red Blood Count 3.44 10^6 /uL (3.70-4.87); Red Cell Distribution Width 13 % (10-15); White Blood Count 15.7 10^3/uL (3.5-10.8)
[2019-04-14 13:37] LABS: Activated Partial Thrombo Time 32.9 seconds (26.0-38.0); INR 1.01 (0.82-1.09)
[2019-04-14 13:41] LABS: BUN/Creatinine Ratio 17.8 (8-20); Calcium 7.9 mg/dL (8.6-10.3); EGFR African American 36.7 (>60); EGFR Non-African American 30.4 (>60); Potassium 4.4 mmol/L (3.5-5.0)
[2019-04-14] MEDS ORDERED: Remifentanil* 2 MG VIAL ONE (15:22)
[2019-04-14] MEDS ORDERED: Lidocaine 2% PF * 5 ML VIAL ONE (15:23)
[2019-04-14] MEDS ORDERED: Propofol* 10 MG/ML 20 ML BTL ONE (15:23)
--- NOTE | 2019-04-14 17:43 | OP ---
DATE OF OPERATION: 04/14/19 - ROOM #414 DATE OF : 51 SURGEON: Favian Huerta MD ANESTHESIOLOGIST: Dr. Everton Hartman. ANESTHESIA: IV sedation with MAC. PRE-OP DIAGNOSES: 1. Proximal left ureteral calculus. 2. Left hydronephrosis due to above. 3. Urinary tract infection. POST-OP DIAGNOSES: 1. Proximal left ureteral calculus. 2. Left hydronephrosis due to above. 3. Urinary tract infection. OPERATIVE PROCEDURES: 1. Cystoscopy. 2. Left retrograde pyelography. 3. Insertion of left ureteral stent (6-American). INDICATION FOR PROCEDURE: Mrs. Butler is a 63-year-old white female who presented to the emergency room last night with left-sided abdominal pain and was noted on non-contrast CT of the abdomen and pelvis to have a 7 mm obstructing calculus in the proximal left ureter. She also had small bilateral renal calculi. No other abnormalities were noted. Her urinalysis on admission was positive for esterase and blood, negative nitrite. Her white count was normal, and her serum creatinine was 1.1. The patient was started on IV antibiotics and was taken to the operating room for left ureteral stent insertion in preparation for definitive treatment of the stone. While in the holding area and while waiting for clearance of her neurological condition by the hospitalist service, the patient was noted to have a fever of 38.5. Her white count was up to 15,700 and creatinine was up to 1.7. Her lactic acid was 1.8. With those findings and the concern about her showing signs of pyelonephritis, the patient now is taken urgently to the operating room for left ureteral stent placement. PATHOLOGY: At cystoscopy, the bladder mucosa looked normal. There were no changes of cystitis noted. No suspicious bladder lesions seen. The ureteral orifices looked normal. There was clear efflux noted from both ureteral orifices. Following placement of the open ended catheter inside the left renal pelvis, there was concentrated urine that drained from her kidney. A total of 35 cc of urine was aspirated from the left kidney. Following the aspiration of the fluid , retrograde pyelography showed no hydronephrosis. The calculus was not clearly seen on fluoroscopy. DESCRIPTION OF PROCEDURE: With the patient in the dorsal lithotomy position and under intravenous sedation with anesthesia monitoring, cystoscopy was performed. The bladder was carefully inspected and the above findings were noted. A flexible-tip guidewire was then introduced into the left orifice and positioned in the area of the left renal pelvis. An open ended catheter was fed on top of the guidewire and positioned in the area of the renal pelvis. The collecting system was then decompressed by aspirating a total of 35 cc of concentrated urine. Urine specimen from the left kidney was sent for culture and sensitivity. When it was felt that the collecting system was decompressed, a total of 3 mL non- diluted contrast was injected delineating the collecting system. A size 6-American stent was then placed with the proximal end coiling in the renal pelvis and the distal end coiling inside the bladder. The cystoscope was removed and the 16-American Leiva catheter was placed. The patient tolerated the procedure well and left the operating room in good condition. The plan is to observe the patient for possible sepsis. A KUB will be obtained postoperatively to assess the left ureteral calculus. The definitive treatment of the stone will depend upon the KUB findings. [id number]/[facility] #: [id number] KIMI
[2019-04-14] MEDS: Atorvastatin* 20 MG TAB PO SCH ×2 (19:27→19:31)
--- NOTE | 2019-04-14 20:06 | PN ---
Hospitalist Progress Note Date of Service: 04/14/19 Update note I reviewed the results of the EEG with Dr. Bhatia--she had no epileptiform activity. Labs this am showed leukocytosis and AGUILA, so surgery proceeded. Cystoscopy with ureteral stent was completed uneventfully. Postop, she was awake, talking with her sister on the phone, and feeling well. Will recheck labs tomorrow to be sure renal function is improving.
--- NOTE | 2019-04-14 21:16 | EEG ---
ELECTROENCEPHALOGRAPHY: DATE OF SERVICE: 04/14/19 DATE READ: 04/14/19 ORDERED BY: Lissa Kinsey DO INDICATION: Mrs. Lucia Butler is a 63-year-old with a history of epilepsy who has intermittent confusion. This EEG was requested to evaluate for epileptiform discharges or electrographic seizures. CLINICAL STATE: Awake and drowsy. REPORT: This EEG showed interhemispheric asymmetry with neither side being normal. Over the left hemisphere, the background lacked organization or a clear defined anterior posterior voltage and frequency gradients. There was no discernible posterior dominant rhythm. Instead, the background consisted of a mixed frequency 3-6 Hz slowing in the theta and delta range that persisted throughout the recording. Over the right hemisphere, there was retained background organization and showed discernible anterior-posterior voltage and frequency gradients. There was a slow posterior dominant rhythm of 6 Hz. There was an expected pattern of lower voltage irregular mixed faster frequency in the anterior region. The asymmetry persisted throughout the recording. There were occasional, higher amplitude, 2-3 Hz delta slowing over the central parietal region on the left. In addition, there were occasional sharp and slow wave epileptiform discharges in the parietal region maximal at P3. Hypoventilation and photic stimulation were not performed. Single electrode EKG showed sinus tachycardia with a rate of 105 beats per minute. There were no electrographic seizures. CLINICAL IMPRESSION: This is an abnormal awake and drowsy EEG due to interhemispheric asymmetry with neither side being normal, but predominantly poorly organized and diffuse mixed frequency slowing over the left hemisphere. There was diffuse delta and theta slowing over the right hemisphere. Also, there were focal delta slowing over the left parietal region with embedded sharp and slow wave epileptiform discharges. These findings are suggestive of a focal neuronal dysfunction involving the left hemisphere, diffuse mild- moderate nonspecific encephalopathy, and an area of increased epileptogenic potentials emanating from the left parietal region. There were no evidence of electrographic seizures. [id number]/[facility] #: [id number] [facility]
[2019-04-14] MEDS: cefTRIAXone VIAL(*) 1,000 MG in NS 0.9% 50 ML* 50 ML IVPB SCH (21:52)
[2019-04-15] MEDS: NS 0.9% 1000 ML** 1,000 ML IV SCH (05:58)
[2019-04-15 06:25] LABS: Hematocrit 31 % (35-47); Hemoglobin 10.5 g/dL (12.0-16.0); Mean Corpuscular HGB Conc 34 g/dL (31-36); Mean Corpuscular Hemoglobin 32 pg (27-31); Mean Corpuscular Volume 94 fL (80-97); Mean Platelet Volume 8.2 fL (7.4-10.4); Platelet Count 188 10^3/uL (150-450); Red Blood Count 3.31 10^6 /uL (3.70-4.87); Red Cell Distribution Width 13 % (10-15); White Blood Count 25.9 10^3/uL (3.5-10.8)
[2019-04-15 06:45] LABS: BUN/Creatinine Ratio 20.7 (8-20); EGFR African American 47.6 (>60); EGFR Non-African American 39.4 (>60); Potassium 3.8 mmol/L (3.5-5.0)
[2019-04-15 07:23] LABS: ABS Eosinophils 0.3 10^3/ul (0-0.6); ABS Lymphocytes 0.4 10^3/ul (1.0-4.8); ABS Monocytes 0.4 10^3/ul (0-0.8); ABS Neutrophils 24.9 10^3/ul (1.5-7.7); Lymphocyte % 1.6 %
[2019-04-15] MEDS: Folic Acid TAB* 1 MG PO SCH (07:55)
[2019-04-15] MEDS: CMCS:Zonisamide (NF) 50 MG CAP PO SCH ×2 (07:56→21:34)
[2019-04-15] MEDS: OXcarbazepine TAB(*) 300 MG PO SCH ×2 (07:56→21:34)
[2019-04-15] MEDS ORDERED: Senna TAB PO PRN (13:58)
--- NOTE | 2019-04-15 14:06 | PN ---
Subjective Date of Service: 04/15/19 Interval History: No acute events overnight, afebrile. WBC up to 25.9, HR 103 feeling well, asking when she can go home. Able to walk to bathroom, denies abdominal pain, f/c/n/v. Last BM day before admission, asking for her home pericolace. Hx of nephrostomy tube [place] ~2013 after sepsis, kidney stones. carotid US few weeks ago. Catherine, health care proxy at bedside. LCSW improved to 1.35 from 1.69, 1.15 Objective Active Medications: Atorvastatin Calcium (Lipitor*) 20 mg PO 1800 [facility] Last Admin: 04/14/19 19:31 Dose: Not Given Docusate Sodium (Colace Cap*) 100 mg PO DAILY [facility] Folic Acid (Folvite Tab*) 1 mg PO QAM [facility] Last Admin: 04/15/19 07:55 Dose: 1 mg Sodium Chloride (Ns 0.9% 1000 Ml) 1,000 mls @ 125 mls/hr IV PER RATE [facility] Last Admin: 04/15/19 05:58 Dose: 125 mls/hr Ceftriaxone Sodium 1,000 mg/ (Sodium Chloride) 50 mls @ 200 mls/hr IVPB Q24H [facility] Last Admin: 04/14/19 21:52 Dose: 200 mls/hr Ibuprofen (Motrin Tab*) 400 mg PO Q4H PRN PRN Reason: PAIN Morphine Sulfate (Morphine 4 Mg/Ml Vial (1 Ml)) 3 mg IV Q3H PRN PRN Reason: PAIN Ondansetron HCl (Zofran Inj*) 4 mg IV Q6H PRN PRN Reason: NAUSEA Oxcarbazepine (Trileptal Tab(*)) 300 mg PO 0900,1800 [facility] Last Admin: 04/15/19 07:56 Dose: 300 mg Pantoprazole Sodium (Protonix Tab*) 40 mg PO DAILY PRN PRN Reason: INDIGESTION Polyethylene Glycol/Electrolytes (Miralax*) 17 gm PO DAILY PRN PRN Reason: CONSTIPATION Senna (Senokot Tab*) 1 tab PO DAILY [facility] Zonisamide (Zonegran (Nf)) 300 mg PO 0900,1800 [facility] Last Admin: 04/15/19 07:56 Dose: 300 mg Vital Signs - 8 hr 04/15/19 04/15/19 04/15/19 09:03 09:42 10:01 Temperature 98.7 F Pulse Rate 104 Respiratory 20 20 Rate Blood Pressure 117/53 (mmHg) O2 Sat by Pulse 100 Oximetry 04/15/19 10:59 Temperature 98.6 F Pulse Rate 94 Respiratory 16 Rate Blood Pressure 110/84 (mmHg) O2 Sat by Pulse 99 Oximetry Oxygen Devices in Use Now: None Appearance: NAD, eating food. Eyes: No Scleral Icterus Ears/Nose/Mouth/Throat: NL Teeth, Lips, Gums, Mucous Membranes Moist Respiratory: Symmetrical Chest Expansion and Respiratory Effort, Clear to Auscultation Cardiovascular: NL Sounds; No Murmurs; No JVD Abdominal: NL Sounds; No Tenderness; No Distention, No Hepatosplenomegaly Extremities: No Edema Skin: No Rash or Ulcers Neurological: Alert and Oriented x 3, NL Muscle Strength and Tone Nutrition: Taking PO's - Nutrition: Malnutrition Diagnosis/Plan Malnutrition Assessment by Registered Dietitian: Malnutrition Assessment Clinical Characteristics Chronic,Moderate Malnutrition Assessment: severe wt loss: 6% x 2 weeks Criteria mild-moderate muscle mass wasting (temporal wasting) Malnutrition Assessment: Ensure Enlive daily @ B: 350 kcal, 20 g pro Interventions Malnutrition Assessment: Goals 1. Intake will be adequate to promote wt gain to at least UBW (115#) 2. PO of at least 50% of meals; good acceptance of supplement 3. Continued improvement in Cr with stent placement Result Diagrams: 04/15/19 06:09 04/15/19 06:09 Additional Lab and Data: Laboratory Results - last 24 hr 04/15/19 04/15/19 06:09 06:09 WBC 25.9 H RBC 3.31 L Hgb 10.5 L Hct 31 L MCV 94 MCH 32 H MCHC 34 RDW 13 Plt Count 188 MPV 8.2 Neut % (Auto) 95.9 Lymph % (Auto) 1.6 [place] % (Auto) 1.5 Eos % (Auto) 1.0 Baso % (Auto) 0.0 Absolute Neuts (auto) 24.9 H Absolute Lymphs (auto) 0.4 L Absolute Monos (auto) 0.4 Absolute Eos (auto) 0.3 Absolute Basos (auto) 0.0 Absolute Nucleated RBC 0.0 Nucleated RBC % 0.0 Sodium 134 L Potassium 3.8 Chloride 106 Carbon Dioxide 22 Anion Gap 6 BUN 28 H Creatinine 1.35 H Est GFR ( Amer) 47.6 Est GFR (Non-Af Amer) 39.4 BUN/Creatinine Ratio 20.7 H Glucose 107 H Calcium 8.0 L Microbiology and Other Data: Microbiology 04/13/19 20:38 Urine Culture - Preliminary Urine Escherichia Coli Diagnostic Imaging: CT abdo/pelvis: impacted stone left distal ureter, 7mm, with some hydronephrosis EKG Data: Normal sinus rhythm, normal axis, poor R-wave progression in V2-3, possible old AMI Assess/Plan/Problems-Billing Assessment: 63 year old woman PMH SLE, 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 Ecoli. Hx of ESBL Ecoli though not 2 most recent. s/p left ureteral stent. - Patient Problems (1) Sepsis Current Visit: Yes Status: Acute Comment: Leukocytosis increased though in setting of instrumentation. Continue CFTX for now as afebrile and nontoxic appearing (and even asking when she can go home). However does have Hx of ESBL Ecoli that would need zosyn or carbapenem. (2) Carotid artery stenosis Current Visit: Yes Status: Acute Code(s): I65.29 - OCCLUSION AND STENOSIS OF UNSPECIFIED CAROTID ARTERY SNOMED Code(s): 37662411 Comment: left 50-69% right <50% continue statin. (3) History of CVA (cerebrovascular accident) Current Visit: Yes Status: Acute Code(s): Z86.73 - PRSNL HX OF TIA (TIA), AND CEREB INFRC W/O RESID DEFICITS SNOMED Code(s): 348808767 Comment: on lipitor- continue not on aspirin as outpatient. (4) Discoid lupus erythematosus Current Visit: Yes Status: Acute Code(s): L93.0 - DISCOID LUPUS ERYTHEMATOSUS SNOMED Code(s): 586107550 Comment: holding home plaquenil in setting of infection/sepsis (5) DVT prophylaxis Current Visit: Yes Status: Acute Priority: Low Code(s): Z29.9 - ENCOUNTER FOR PROPHYLACTIC MEASURES, UNSPECIFIED SNOMED Code(s): 841231345 Comment: -Moderate risk, will use SCDs (6) Seizure disorder Current Visit: Yes Status: Acute Priority: Low Code(s): G40.909 - EPILEPSY , UNSP, NOT INTRACTABLE, WITHOUT STATUS EPILEPTICUS SNOMED Code(s): 669647169 Comment: -Will continue oxcarbazepine/ zonisamide (latter can predispose to kidney stones but Dr. Oliveira Oct 2018 not comfortable stopping it given difficult to control epilepsy. (7) UTI (urinary tract infection) Current Visit: Yes Status: Acute Priority: Medium Comment: -as above (8) Ureteral calculus, left Current Visit: Yes Status: Acute Priority: High Code(s): N20.1 - CALCULUS OF URETER SNOMED Code(s): 34892837 Comment: - s/p cystoscopy/stent on 04/14. - Will need outpatient Urology ([facility]) f/u (9) Cachexia Current Visit: Yes Status: Chronic Priority: Medium Code(s): R64 - CACHEXIA SNOMED Code(s): 504887720 Comment: -Patient has signs of protein-calorie malnutrion -This is chronic issue, suspect anorexia nervosa vs malignancy (10) Smoking Current Visit: Yes Status: Acute Code(s): F17.200 - NICOTINE DEPENDENCE, UNSPECIFIED, UNCOMPLICATED SNOMED Code(s): 48951696 Comment: she does not want a nicotine patch 1/2 ppd. (11) Hypertension Current Visit: Yes Status: Acute Priority: Medium Code(s): I10 - ESSENTIAL (PRIMARY) HYPERTENSION SNOMED Code(s): 98211940 Comment: -hold ACEI given sepsis and AGUILA. Status and Disposition: inpatient
[2019-04-15] MEDS: Docusate CAP* 100 MG PO SCH (14:24)
[2019-04-15] MEDS: Senna TAB PO SCH (14:25)
[2019-04-15] MEDS ORDERED: Metoprolol Tartrate IV* 1 MG/ML 5 ML VIAL IV ONE (19:50)
--- NOTE | 2019-04-15 20:17 | PN ---
Hospitalist Progress Note Date of Service: 04/15/19 SOAP Note: S: Nursing called to report HR in 180s-200s on telemetry. STAT EKG ordered and showed afib with RVR. Ms. Butler is seen sitting up in bed, fully alert. She states she "feels like I normally do" and denies weakness, dizziness, CP, SOB, palpitations, or other symptoms. Denies any previous history of atrial fibrillation. She has been diagnoses with sepsis secondary to infected and impacted ureteral stone s/p stent placement. Has leukocytosis in the presence of recent instrumentation. Friend in room states that she had a previous history of this when she was septic and that she had a heart rate that was "all over the place" and high BP. O: VS: 169/83, HR 170-190. Cachectic older female, sitting up in bed, fully alert and responding appropriately to questions. In no acute distress. HEENT: PERRLA, oral mucosa moist. Neck supple, no JVD noted. CV: irregularly irregular rate and rhythm with tachycardia, no murmur heard. Lungs: CTA. Abdomen: BS+, soft, nontender. Extremities: no edema, pedal pulses palpable. Skin: warm and dry. Neuro: AOx3 A/P: 63 yo female, admitted with infected ureteral stone, meets sepsis requirement, now in atrial fibrillation with RVR. Patient assessed at bedside. EKG shows Afib with rate 170s-190s. Patient given one dose of IV Lopressor 5 mg and is now 92-100bpm on monitor and appears to be in NSR. Recheck EKG. Start metoprolol succinate PO q6h with hold parameters. Check TTE to help with calculation of [id number] though she scores for age, HTN, history of CVA/TIA. Will defer to day team to review risk factors and TTE and determine if anticoagulation is appropriate. Continue SCDs at this point. Check BMP with Mg and replete electrolytes as needed. Will add on A1c. POC reviewed with attending campus supervisor, Lissa Kinsey, who is in agreement.
[2019-04-15] MEDS ORDERED: Metoprolol Succinate XL TAB* 25 MG PO SCH (21:00)
[2019-04-15 21:18] LABS: BUN/Creatinine Ratio 21.9 (8-20); Blood Urea Nitrogen 23 mg/dL (6-24); CO2 Carbon Dioxide 20 mmol/L (22-32); Calcium 8.2 mg/dL (8.6-10.3); Chloride 105 mmol/L (101-111); EGFR African American 63.6 (>60); EGFR Non-African American 52.6 (>60); Glucose 94 mg/dL (70-100); Magnesium 1.7 mg/dL (1.9-2.7); Sodium 133 mmol/L (135-145)
[2019-04-15 21:25] LABS: Anion Gap 8 mmol/L (2-11)
[2019-04-15] MEDS: Atorvastatin* 20 MG TAB PO SCH (21:32)
[2019-04-15] MEDS: Metoprolol Tartrate TAB* 25 MG PO SCH (21:33)
[2019-04-15] MEDS: cefTRIAXone VIAL(*) 1,000 MG in NS 0.9% 50 ML* 50 ML IVPB SCH (21:33)
[2019-04-15] MEDS ORDERED: Magnesium Sulfate IV* 3 GM in NS 0.9% 100 ML* 100 ML IVPB ONE (23:30)
[2019-04-16] MEDS: Metoprolol Tartrate TAB* 25 MG PO SCH ×3 (04:01→16:07)
[2019-04-16] MEDS ORDERED: Magnesium Sulfate 2 GM IV* 2 GM/50 ML BAG IVPB ONE (07:11)
[2019-04-16] MEDS: Folic Acid TAB* 1 MG PO SCH (08:32)
[2019-04-16] MEDS: Docusate CAP* 100 MG PO SCH (08:32)
[2019-04-16] MEDS: Senna TAB PO SCH (08:32)
[2019-04-16] MEDS: OXcarbazepine TAB(*) 300 MG PO SCH ×2 (08:48→20:36)
[2019-04-16] MEDS: CMCS:Zonisamide (NF) 50 MG CAP PO SCH ×2 (08:48→20:36)
[2019-04-16 11:22] LABS: Hematocrit 32 % (35-47); Hemoglobin 10.5 g/dL (12.0-16.0); Mean Corpuscular HGB Conc 33 g/dL (31-36); Mean Corpuscular Hemoglobin 31 pg (27-31); Mean Corpuscular Volume 94 fL (80-97); Mean Platelet Volume 8.3 fL (7.4-10.4); Platelet Count 178 10^3/uL (150-450); Red Blood Count 3.44 10^6 /uL (3.70-4.87); Red Cell Distribution Width 13 % (10-15)
[2019-04-16 11:34] LABS: BUN/Creatinine Ratio 21.5 (8-20); Calcium 9.1 mg/dL (8.6-10.3); EGFR African American 62.3 (>60); EGFR Non-African American 51.5 (>60); Magnesium 2.5 mg/dL (1.9-2.7); Potassium 3.5 mmol/L (3.5-5.0)
[2019-04-16] MEDS ORDERED: Potassium Chloride* LIQUID 20 MEQ/15 ML UDC PO ONE (12:29)
--- NOTE | 2019-04-16 12:56 | PN ---
Subjective Date of Service: 04/16/19 Interval History: Went into symptomatic Afib HR reportedly around 200 while walking around the unit. EKG with rates 175. Improved with lopressor 5mg then initiation of 25mg metoprolol po q6. back to NSR. Mag 1.7 and repleted with 3gm. A1C 6.0. WBC up to 27.0. has some intermittent pain to palpation of certain points in LLQ /flank. Afebrile had BM no CP, SOB. Objective Active Medications: Atorvastatin Calcium (Lipitor*) 20 mg PO 2199 [facility] Last Admin: 04/15/19 21:32 Dose: 20 mg Docusate Sodium (Colace Cap*) 100 mg PO DAILY [facility] Last Admin: 04/16/19 08:32 Dose: 100 mg Folic Acid (Folvite Tab*) 1 mg PO QAM [facility] Last Admin: 04/16/19 08:32 Dose: 1 mg Sodium Chloride (Ns 0.9% 1000 Ml) 1,000 mls @ 125 mls/hr IV PER RATE [facility] Last Admin: 04/15/19 05:58 Dose: 125 mls/hr Ceftriaxone Sodium 1,000 mg/ (Sodium Chloride) 50 mls @ 200 mls/hr IVPB Q24H [facility] Last Admin: 04/15/19 21:33 Dose: 200 mls/hr Ibuprofen (Motrin Tab*) 400 mg PO Q4H PRN PRN Reason: PAIN Metoprolol Tartrate (Lopressor Tab*) 25 mg PO Q6H [facility] Last Admin: 04/16/19 08:32 Dose: 25 mg Morphine Sulfate (Morphine 4 Mg/Ml Vial (1 Ml)) 3 mg IV Q3H PRN PRN Reason: PAIN Ondansetron HCl (Zofran Inj*) 4 mg IV Q6H PRN PRN Reason: NAUSEA Oxcarbazepine (Trileptal Tab(*)) 300 mg PO 0900,2200 [facility] Last Admin: 04/16/19 08:48 Dose: 300 mg Pantoprazole Sodium (Protonix Tab*) 40 mg PO DAILY PRN PRN Reason: INDIGESTION Polyethylene Glycol/Electrolytes (Miralax*) 17 gm PO DAILY PRN PRN Reason: CONSTIPATION Senna (Senokot Tab*) 1 tab PO DAILY [facility] Last Admin: 04/16/19 08:32 Dose: 1 tab Zonisamide (Zonegran (Nf)) 300 mg PO 0900,2200 [facility] Last Admin: 04/16/19 08:48 Dose: 300 mg Vital Signs - 8 hr 04/16/19 04/16/19 07:28 11:39 Temperature 97.9 F 97.9 F Pulse Rate 73 67 Respiratory 16 16 Rate Blood Pressure 127/61 94/54 (mmHg) O2 Sat by Pulse 99 100 Oximetry Oxygen Devices in Use Now: None Appearance: NAD, sitting in chair. Eyes: No Scleral Icterus Ears/Nose/Mouth/Throat: NL Teeth, Lips, Gums Respiratory: Symmetrical Chest Expansion and Respiratory Effort, Clear to Auscultation Cardiovascular: NL Sounds; No Murmurs; No JVD, RRR Abdominal: NL Sounds; No Tenderness; No Distention, No Hepatosplenomegaly Extremities: No Edema Neurological: Alert and Oriented x 3, NL Sensation, NL Muscle Strength and Tone Nutrition: Taking PO's - Nutrition: Malnutrition Diagnosis/Plan Malnutrition Assessment by Registered Dietitian: Malnutrition Assessment Clinical Characteristics Chronic,Moderate Malnutrition Assessment: severe wt loss: 6% x 2 weeks Criteria mild-moderate muscle mass wasting (temporal wasting) Malnutrition Assessment: Ensure Enlive daily @ B: 350 kcal, 20 g pro Interventions Malnutrition Assessment: Goals 1. Intake will be adequate to promote wt gain to at least UBW (115#) 2. PO of at least 50% of meals; good acceptance of supplement 3. Continued improvement in Cr with stent placement Result Diagrams: 04/16/19 11:04 04/16/19 11:04 Additional Lab and Data: Laboratory Results - last 24 hr 04/15/19 04/15/19 04/16/19 06:09 20:33 11:04 WBC 27.0 H RBC 3.44 L Hgb 10.5 L Hct 32 L MCV 94 MCH 31 MCHC 33 RDW 13 Plt Count 178 MPV 8.3 Sodium 133 L Potassium TNP Chloride 105 Carbon Dioxide 20 L Anion Gap 8 BUN 23 Creatinine 1.05 H Est GFR ( Amer) 63.6 Est GFR (Non-Af Amer) 52.6 BUN/Creatinine Ratio 21.9 H Glucose 94 Hemoglobin A1c 6.0 H Calcium 8.2 L Magnesium 1.7 L 04/16/19 11:04 WBC RBC Hgb Hct MCV MCH MCHC RDW Plt Count MPV Sodium 135 Potassium 3.5 Chloride 107 Carbon Dioxide 23 Anion Gap 5 BUN 23 Creatinine 1.07 H Est GFR ( Amer) 62.3 Est GFR (Non-Af Amer) 51.5 BUN/Creatinine Ratio 21.5 H Glucose 108 H Hemoglobin A1c Calcium 9.1 Magnesium 2.5 Microbiology and Other Data: Microbiology 04/13/19 20:38 Urine Urine Culture - Final Escherichia Coli 04/14/19 16:30 Urine Urine Culture - Final No Growth (<1,000 CFU/mL) Diagnostic Imaging: CT abdo/pelvis: impacted stone left distal ureter, 7mm, with some hydronephrosis EKG Data: Normal sinus rhythm, normal axis, poor R-wave progression in V2-3, possible old AMI Assess/Plan/Problems-Billing Assessment: 63 year old woman PMH SLE, 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 Ecoli. Hx of ESBL Ecoli though not 2 most recent. s/p left ureteral stent. Course complicated by Afib w / RVR. - Patient Problems (1) Sepsis Current Visit: Yes Status: Acute Comment: Leukocytosis increased though in setting of instrumentation. Continue CFTX as Ecoli sensitive to that. afebrile and nontoxic appearing. UCx from cytscopy clear. (2) Carotid artery stenosis Current Visit: Yes Status: Acute Code(s): I65.29 - OCCLUSION AND STENOSIS OF UNSPECIFIED CAROTID ARTERY SNOMED Code(s): 17899781 Comment: left 50-69% right <50% continue statin. (3) History of CVA (cerebrovascular accident) Current Visit: Yes Status: Acute Code(s): Z86.73 - PRSNL HX OF TIA (TIA), AND CEREB INFRC W/O RESID DEFICITS SNOMED Code(s): 342800561 Comment: on lipitor- continue she provided a medication list and is on 325mg aspirin as outpatient. restart She refuses consideration of Afib anticoagulation - worried about brain bleed. Asked her to discuss further with her PCP and Dr. Oliveira (4) Discoid lupus erythematosus Current Visit: Yes Status: Acute Code(s): L93.0 - DISCOID LUPUS ERYTHEMATOSUS SNOMED Code(s): 114868369 Comment: holding home plaquenil in setting of infection/sepsis (5) DVT prophylaxis Current Visit: Yes Status: Acute Priority: Low Code(s): Z29.9 - ENCOUNTER FOR PROPHYLACTIC MEASURES, UNSPECIFIED SNOMED Code(s): 858906349 Comment: -Moderate risk, will use SCDs (6) Seizure disorder Current Visit: Yes Status: Acute Priority: Low Code(s): G40.909 - EPILEPSY , UNSP, NOT INTRACTABLE, WITHOUT STATUS EPILEPTICUS SNOMED Code(s): 987640025 Comment: -Will continue oxcarbazepine/ zonisamide (latter can predispose to kidney stones but Dr. Oliveira Oct 2018 not comfortable stopping it given difficult to control epilepsy. (7) UTI (urinary tract infection) Current Visit: Yes Status: Acute Priority: Medium Comment: -as above (8) Ureteral calculus, left Current Visit: Yes Status: Acute Priority: High Code(s): N20.1 - CALCULUS OF URETER SNOMED Code(s): 31558790 Comment: - s/p cystoscopy/stent on 04/14. - Will need outpatient Urology ([facility]) f/u (9) Cachexia Current Visit: Yes Status: Chronic Priority: Medium Code(s): R64 - CACHEXIA SNOMED Code(s): 323528466 Comment: -Patient has signs of protein-calorie malnutrion -This is chronic issue, suspect anorexia nervosa vs malignancy (10) Smoking Current Visit: Yes Status: Acute Code(s): F17.200 - NICOTINE DEPENDENCE, UNSPECIFIED, UNCOMPLICATED SNOMED Code(s): 48945561 Comment: she does not want a nicotine patch 1/2 ppd. (11) Hypertension Current Visit: Yes Status: Acute Priority: Medium Code(s): I10 - ESSENTIAL (PRIMARY) HYPERTENSION SNOMED Code(s): 32199248 Comment: -restart lisinpril 5mg given resolution of AGUILA. (12) A-fib Current Visit: Yes Status: Acute Code(s): I48.91 - UNSPECIFIED ATRIAL FIBRILLATION SNOMED Code(s): 82656068 Comment: this now 2nd confirmed time. swith to metoprolol succinate. She refuses a/c. ECHO pending. CHADSVASC2 of atleast (gender, age, CVA Hx, HTN) 5 so very high risk. Status and Disposition: inpatient
[2019-04-16] MEDS: Aspirin TAB* 325 MG PO SCH (13:17)
[2019-04-16] MEDS: Atorvastatin* 20 MG TAB PO SCH (20:35)
[2019-04-16] MEDS: cefTRIAXone VIAL(*) 1,000 MG in NS 0.9% 50 ML* 50 ML IVPB SCH (22:17)
[2019-04-17 07:05] LABS: ABS Eosinophils 0.5 10^3/ul (0-0.6); ABS Lymphocytes 0.4 10^3/ul (1.0-4.8); ABS Monocytes 0.8 10^3/ul (0-0.8); ABS Neutrophils 16.5 10^3/ul (1.5-7.7); Eosinophil % 2.7 %; Hematocrit 29 % (35-47); Lymphocyte % 2.2 %; Mean Corpuscular HGB Conc 34 g/dL (31-36); Mean Corpuscular Hemoglobin 32 pg (27-31); Mean Corpuscular Volume 93 fL (80-97); Mean Platelet Volume 8.3 fL (7.4-10.4); Platelet Count 189 10^3/uL (150-450); Red Blood Count 3.15 10^6 /uL (3.70-4.87); Red Cell Distribution Width 13 % (10-15); White Blood Count 18.2 10^3/uL (3.5-10.8)
[2019-04-17 07:26] LABS: BUN/Creatinine Ratio 27.8 (8-20); Calcium 8.5 mg/dL (8.6-10.3); EGFR African American 88.4 (>60); Potassium 3.5 mmol/L (3.5-5.0)
[2019-04-17] MEDS: Aspirin TAB* 325 MG PO SCH (08:22)
[2019-04-17] MEDS: Folic Acid TAB* 1 MG PO SCH (08:22)
[2019-04-17] MEDS: Lisinopril TAB* 5 MG PO SCH (08:23)
[2019-04-17] MEDS: Metoprolol Succinate XL TAB* 50 MG PO SCH (08:23)
[2019-04-17] MEDS: Docusate CAP* 100 MG PO SCH (08:23)
[2019-04-17] MEDS: Senna TAB PO SCH (08:23)
[2019-04-17] MEDS: CMCS:Zonisamide (NF) 50 MG CAP PO SCH ×2 (08:26→21:39)
[2019-04-17] MEDS: OXcarbazepine TAB(*) 300 MG PO SCH ×2 (08:34→21:34)
[2019-04-17] MEDS: Potassium Chloride* LIQUID 20 MEQ/15 ML UDC PO SCH ×2 (12:44→14:03)
--- NOTE | 2019-04-17 20:59 | PN ---
Subjective Interval History: No acute events overnight, afebrile. rate controlled NSR on tele large BM minimal LLQ abdominal pain wbc fell to 18 from 27. was afraid to walk as thought it might make her heart race again. Objective Active Medications: Aspirin (Aspirin Tab*) 325 mg PO DAILY [facility] Last Admin: 04/17/19 08:22 Dose: 325 mg Atorvastatin Calcium (Lipitor*) 20 mg PO 2200 [facility] Last Admin: 04/16/19 20:35 Dose: 20 mg Docusate Sodium (Colace Cap*) 100 mg PO DAILY [facility] Last Admin: 04/17/19 08:23 Dose: 100 mg Folic Acid (Folvite Tab*) 1 mg PO QAM [facility] Last Admin: 04/17/19 08:22 Dose: 1 mg Sodium Chloride (Ns 0.9% 1000 Ml) 1,000 mls @ 125 mls/hr IV PER RATE [facility] Last Admin: 04/15/19 05:58 Dose: 125 mls/hr Ceftriaxone Sodium 1,000 mg/ (Sodium Chloride) 50 mls @ 200 mls/hr IVPB Q24H [facility] Last Admin: 04/16/19 22:17 Dose: 200 mls/hr Ibuprofen (Motrin Tab*) 400 mg PO Q4H PRN PRN Reason: PAIN Lisinopril (Prinivil Tab*) 5 mg PO DAILY [facility] Last Admin: 04/17/19 08:23 Dose: 5 mg Metoprolol Succinate (Toprol Xl Tab*) 50 mg PO 0800 [facility] Last Admin: 04/17/19 08:23 Dose: 50 mg Morphine Sulfate (Morphine 4 Mg/Ml Vial (1 Ml)) 3 mg IV Q3H PRN PRN Reason: PAIN Ondansetron HCl (Zofran Inj*) 4 mg IV Q6H PRN PRN Reason: NAUSEA Oxcarbazepine (Trileptal Tab(*)) 300 mg PO 0900,2200 [facility] Last Admin: 04/17/19 08:34 Dose: 300 mg Pantoprazole Sodium (Protonix Tab*) 40 mg PO DAILY PRN PRN Reason: INDIGESTION Polyethylene Glycol/Electrolytes (Miralax*) 17 gm PO DAILY PRN PRN Reason: CONSTIPATION Senna (Senokot Tab*) 1 tab PO DAILY [facility] Last Admin: 04/17/19 08:23 Dose: 1 tab Zonisamide (Zonegran (Nf)) 300 mg PO 0900,2200 [facility] Last Admin: 04/17/19 08:26 Dose: 300 mg Vital Signs - 8 hr 04/17/19 04/17/19 15:50 19:17 Temperature 97.4 F 97.6 F Pulse Rate 69 76 Respiratory 16 18 Rate Blood Pressure 131/65 150/79 (mmHg) O2 Sat by Pulse 100 100 Oximetry Oxygen Devices in Use Now: None Appearance: NAD Eyes: No Scleral Icterus Ears/Nose/Mouth/Throat: NL Teeth, Lips, Gums Neck: NL Appearance and Movements; NL JVP Respiratory: Symmetrical Chest Expansion and Respiratory Effort Cardiovascular: NL Sounds; No Murmurs; No JVD Abdominal: NL Sounds; No Tenderness; No Distention Extremities: No Edema Neurological: Alert and Oriented x 3, NL Muscle Strength and Tone Nutrition: Taking PO's - Nutrition: Malnutrition Diagnosis/Plan Malnutrition Assessment by Registered Dietitian: Malnutrition Assessment Clinical Characteristics Chronic,Moderate Malnutrition Assessment: severe wt loss: 6% x 2 weeks Criteria mild-moderate muscle mass wasting (temporal wasting) Malnutrition Assessment: Ensure Enlive daily @ B: 350 kcal, 20 g pro Interventions Malnutrition Assessment: Goals 1. Intake will be adequate to promote wt gain to at least UBW (115#) 2. PO of at least 50% of meals; good acceptance of supplement 3. Continued improvement in Cr with stent placement Result Diagrams: 04/17/19 06:44 04/17/19 06:44 Additional Lab and Data: Laboratory Results - last 24 hr 04/17/19 04/17/19 06:44 06:44 WBC 18.2 H RBC 3.15 L Hgb 10.0 L Hct 29 L MCV 93 MCH 32 H MCHC 34 RDW 13 Plt Count 189 MPV 8.3 Neut % (Auto) 90.5 Lymph % (Auto) 2.2 [place] % (Auto) 4.3 Eos % (Auto) 2.7 Baso % (Auto) 0.3 Absolute Neuts (auto) 16.5 H Absolute Lymphs (auto) 0.4 L Absolute Monos (auto) 0.8 Absolute Eos (auto) 0.5 Absolute Basos (auto) 0.0 Absolute Nucleated RBC 0.0 Nucleated RBC % 0.0 Sodium 138 Potassium 3.5 Chloride 110 Carbon Dioxide 19 L Anion Gap 9 BUN 22 Creatinine 0.79 Est GFR ( Amer) 88.4 Est GFR (Non-Af Amer) 73.0 BUN/Creatinine Ratio 27.8 H Glucose 108 H Calcium 8.5 L Microbiology and Other Data: Microbiology 04/13/19 20:38 Urine Urine Culture - Final Escherichia Coli 04/14/19 16:30 Urine Urine Culture - Final No Growth (<1,000 CFU/mL) Diagnostic Imaging: CT abdo/pelvis: impacted stone left distal ureter, 7mm, with some hydronephrosis EKG Data: Normal sinus rhythm, normal axis, poor R-wave progression in V2-3, possible old AMI Assess/Plan/Problems-Billing Assessment: 63 year old woman PMH SLE, partial seizures with secondary generalization s/p temporal lobectomy and himmocampal resection(on trileptal and zonisamide), nephrolithiasis p/w with infected and impacted LEFT ureteral stone. Ecoli. s/p left ureteral stent. Course complicated by (2nd episode)Afib w/ RVR. Refused A/c - Patient Problems (1) Sepsis Current Visit: Yes Status: Acute Comment: Leukocytosis finally starts to improve. Continue CFTX (day 4 of planned 14 total antibiotic days) as Ecoli sensitive to that. afebrile and nontoxic appearing. UCx from cytscopy clear. (2) Carotid artery stenosis Current Visit: Yes Status: Acute Code(s): I65.29 - OCCLUSION AND STENOSIS OF UNSPECIFIED CAROTID ARTERY SNOMED Code(s): 75164078 Comment: left 50-69% right <50% continue statin. (3) History of CVA (cerebrovascular accident) Current Visit: Yes Status: Acute Code(s): Z86.73 - PRSNL HX OF TIA (TIA), AND CEREB INFRC W/O RESID DEFICITS SNOMED Code(s): 355141057 Comment: on lipitor- continue she provided a medication list and is on 325mg aspirin as outpatient. continue She refuses consideration of Afib anticoagulation - worried about brain bleed. Asked her to discuss further with her PCP and Dr. Oliveira (4) Discoid lupus erythematosus Current Visit: Yes Status: Acute Code(s): L93.0 - DISCOID LUPUS ERYTHEMATOSUS SNOMED Code(s): 350562109 Comment: holding home plaquenil in setting of infection/sepsis (5) DVT prophylaxis Current Visit: Yes Status: Acute Priority: Low Code(s): Z29.9 - ENCOUNTER FOR PROPHYLACTIC MEASURES, UNSPECIFIED SNOMED Code(s): 348226480 Comment: -Moderate risk, will use SCDs (6) Seizure disorder Current Visit: Yes Status: Acute Priority: Low Code(s): G40.909 - EPILEPSY , UNSP, NOT INTRACTABLE, WITHOUT STATUS EPILEPTICUS SNOMED Code(s): 858031116 Comment: -Will continue oxcarbazepine/ zonisamide (latter can predispose to kidney stones but Dr. Oliveira Oct 2018 not comfortable stopping it given difficult to control epilepsy. (7) UTI (urinary tract infection) Current Visit: Yes Status: Acute Priority: Medium Comment: -as above (8) Ureteral calculus, left Current Visit: Yes Status: Acute Priority: High Code(s): N20.1 - CALCULUS OF URETER SNOMED Code(s): 94641895 Comment: - s/p cystoscopy/stent on 04/14. - Will need outpatient Urology ([facility]) f/u (9) Cachexia Current Visit: Yes Status: Chronic Priority: Medium Code(s): R64 - CACHEXIA SNOMED Code(s): 930638268 Comment: -Patient has signs of protein-calorie malnutrion -This is chronic issue, suspect anorexia nervosa vs malignancy (10) Smoking Current Visit: Yes Status: Acute Code(s): F17.200 - NICOTINE DEPENDENCE, UNSPECIFIED, UNCOMPLICATED SNOMED Code(s): 84175718 Comment: she does not want a nicotine patch 1/2 ppd. (11) Hypertension Current Visit: Yes Status: Acute Priority: Medium Code(s): I10 - ESSENTIAL (PRIMARY) HYPERTENSION SNOMED Code(s): 70076176 Comment: -continue lisinpril 5mg given resolution of AGUILA. (12) A-fib Current Visit: Yes Status: Acute Code(s): I48.91 - UNSPECIFIED ATRIAL FIBRILLATION SNOMED Code(s): 10069640 Comment: this now 2nd confirmed time. continue metoprolol succinate 50mg. She refuses a/c. ECHO pending. CHADSVASC2 of atleast (gender, age, CVA Hx, HTN) 5 so very high risk. Status and Disposition: inpatient, awaiting ECHO but likely home /2 if continued WBC improvement.
[2019-04-17] MEDS: Atorvastatin* 20 MG TAB PO SCH (21:33)
[2019-04-17] MEDS: cefTRIAXone VIAL(*) 1,000 MG in NS 0.9% 50 ML* 50 ML IVPB SCH (21:34)
[2019-04-17] MEDS: NS 0.9% 1000 ML** 1,000 ML IV SCH (23:52)
[2019-04-18 06:16] LABS: ABS Basophils 0.1 10^3/ul (0-0.2); ABS Eosinophils 0.6 10^3/ul (0-0.6); ABS Lymphocytes 0.6 10^3/ul (1.0-4.8); ABS Neutrophils 8.6 10^3/ul (1.5-7.7); Eosinophil % 5.1 %; Hematocrit 31 % (35-47); Hemoglobin 10.6 g/dL (12.0-16.0); Lymphocyte % 5.2 %; Mean Corpuscular HGB Conc 34 g/dL (31-36); Mean Corpuscular Hemoglobin 32 pg (27-31); Mean Corpuscular Volume 93 fL (80-97); Mean Platelet Volume 8.1 fL (7.4-10.4); Nucleated Red Blood Cells % 0.1; Platelet Count 230 10^3/uL (150-450); Red Blood Count 3.37 10^6 /uL (3.70-4.87); Red Cell Distribution Width 14 % (10-15); White Blood Count 10.8 10^3/uL (3.5-10.8)
[2019-04-18 06:42] LABS: BUN/Creatinine Ratio 27.9 (8-20); Calcium 8.7 mg/dL (8.6-10.3); EGFR African American 105.1 (>60); EGFR Non-African American 86.8 (>60); Potassium 3.9 mmol/L (3.5-5.0)
[2019-04-18] MEDS: NS 0.9% 1000 ML** 1,000 ML IV SCH (07:05)
[2019-04-18] MEDS: Lisinopril TAB* 5 MG PO SCH (10:10)
[2019-04-18] MEDS: Folic Acid TAB* 1 MG PO SCH (10:10)
[2019-04-18] MEDS: Senna TAB PO SCH (10:10)
[2019-04-18] MEDS: Aspirin TAB* 325 MG PO SCH (10:10)
[2019-04-18] MEDS: CMCS:Zonisamide (NF) 50 MG CAP PO SCH (10:10)
[2019-04-18] MEDS: Docusate CAP* 100 MG PO SCH (10:10)
[2019-04-18] MEDS: Metoprolol Succinate XL TAB* 50 MG PO SCH (10:10)
[2019-04-18] MEDS: OXcarbazepine TAB(*) 300 MG PO SCH (10:10)
[2019-04-18] MEDS ORDERED: Perflutren Lipid Microsphere* 3 ML VIAL ONE (11:51)
[2019-04-18 13:10] VITALS: BP 115/69
--- NOTE | 2019-04-18 13:45 | ECHO ---
*[facility]* [place] [address] Fax #: [phone] Transthoracic Echocardiogram Patient: Lucia Butler : 1955 Study Date: 04/18/2019 Age: 63 Gender: F HR: 76 bpm Height: 69 in /175.3 cm BSA: 1.57 m^2 Weight: 104.8 lb /47.6 kg BMI: 15.5 kg/m^2 *Census Taker: * Kathie Ponce [facility] *Referring Physician: * Bety Farooq *Reading Physician: * Varghese Soliz MD Indications: Atrial Fibrillation. History: Prior cerebrovascular accident. Risk factors: Current tobacco use. Hypertension. Conclusions Summary: 1. Left ventricle: Systolic function is normal. The estimated ejection fraction is 55-60%. Wall motion is normal; there are no regional wall motion abnormalities. 2. Mitral valve: No echocardiographic evidence for prolapse. There is no significant regurgitation. 3. Aortic valve: There is no evidence of stenosis. 4. Tricuspid valve: There is no significant regurgitation. 5. Pulmonary veins: Visualization of the pulmonary venous anatomy is incomplete, but a significant abnormality is unlikely. 6. Compared to study of 02/03/12, there is little change. Study data: Transthoracic echocardiogram. Procedure: Transthoracic echocardiography was performed. Image quality was suboptimal. Intravenous Definity , 3 mlswas administered. Image enhancement administered by Complete 2D, spectral Doppler, and color flow Doppler. Patient status: Inpatient. Patient room number: 414-1. Rhythm: Normal sinus rhythm. Findings Left ventricle: The cavity size is normal. Wall thickness is mildly increased. Systolic function is normal. The estimated ejection fraction is 55-60%. Wall motion is normal; there are no regional wall motion abnormalities. Left ventricular diastolic function parameters are indeterminate. Right ventricle: Not well visualized. The cavity size is normal. Wall thickness is normal. Systolic function is normal. Ventricular septum: Well visualized. Left atrium: Well visualized. Right atrium: Well visualized. The atrium is normal in size. Atrial septum: Poorly visualized. Mitral valve: Not well visualized. The leaflets are mildly thickened. No echocardiographic evidence for prolapse. There is no evidence of stenosis. There is no significant regurgitation. Aortic valve: Not well visualized. The valve is trileaflet. The leaflets are normal thickness. There is no evidence of stenosis. There is no significant regurgitation. Tricuspid valve: Not well visualized. There is no evidence of stenosis. There is no significant regurgitation. Pulmonic valve: Not well visualized. The leaflets are normal thickness. There is no evidence of stenosis. There is no significant regurgitation. Aorta: The aorta is well visualized and normal size. Aortic arch: The aortic arch is appears normal. The aorta is normal. Pericardium: There is no pericardial effusion. No evidence of pleural fluid accumulation. Pulmonary arteries: Not well visualized. Systemic veins: Well visualized. Inferior vena cava: The respirophasic diameter changes are in the normal range (>= 50%). Pulmonary veins: Visualization of the pulmonary venous anatomy is incomplete, but a significant abnormality is unlikely. Measurements Left ventricle Value Ref Aortic valve Value Ref ZOFIA, LAX (L) 3.3 cm 3.8 - Peak v, S 0.88 m/sec ----- 5.2 VTI, S 22.3 cm ----- ESD, LAX 2.4 cm 2.2 - Mean grad, S 2.0 mm Hg ----- 3.5 Peak grad, S 3.0 mm Hg ----- FS, LAX 31 % 27 - 45 LVOT/AV, VTI ratio 1 ----- PW, ED, LAX (H) 1.0 cm 0.6 - 0.9 Mitral valve Value Ref FS 31 % 27 - 45 Peak E 1.05 m/sec ----- Mid-wall FS 10 % -------- Peak A 0.64 m/sec ----- PW, ED (H) 1.0 cm 0.6 - Decel time 130 ms ----- 0.9 Peak grad, D 4.4 mm Hg ----- PW/ID, ED 0.3 -------- Peak E/A ratio 1.6 ----- E', lat mahogany, TDI 12.5 cm/sec >=10.0 E/e', lat amhogany, TDI 8 -------- Pulmonic valve Value Ref E', med mahogany, TDI (L) 6.7 cm/sec >=7.0 Peak v, S 0.52 m/sec - ---- E/e', med mahogany, TDI 16 -------- Peak grad, S 1.0 mm Hg ---- - E', avg, TDI 9.6 cm/sec -------- E/e', avg, TDI 11 <=14 Tricuspid valve Value R ef TR peak v 2.62 m/sec <=2.8 LVOT Value Ref Peak RV-RA grad, S 27 mm Hg ----- Peak leroy, S 0.88 m/sec -------- Max TR leroy 2.62 m/sec ----- VTI, S 22.3 cm -------- Mean grad, S 2 mm Hg -------- Ascending aorta Value Ref AAo AP diam, S 2.7 cm ----- Ventricular septum Value Ref AAo AP diam/bsa, S 1.7 cm/m^2 ----- IVS, ED (H) 1.4 cm 0.6 - 0.9 Aortic arch Value Ref Arch diam 2.9 cm ----- Right ventricle Value Ref ZOFIA, LAX 1.7 cm -------- Decending aorta Value Ref ZOFIA minor ax, A4C (H) 3.9 cm 1.9 - Matthew peak leroy 0.35 m/sec ----- mid 3.5 Inferior vena cava Value Ref Left atrium Value Ref Diam 1.4 cm ----- ML dim, A4C 4.3 cm -------- SI dim, A4C 4.9 cm -------- Right atrium Value Ref SI dim, ES (H) 5.4 cm 3.4 - 5.3 ML dim, ES, A4C (H) 4.7 cm 2.6 - 4.4 SI dim, ES, A4C (H) 5.4 cm 3.4 - 5.3 SI dim/bsa, ES, A4C (H) 3.4 cm/m^2 1.9 - 3.1 Estimated RAP 3 mm Hg -------- Legend: (L) and (H) sandra values outside specified reference range. Prepared and electronically signed by Varghese Soliz MD 04/18/2019 13:44
--- NOTE | 2019-04-19 22:32 | DS ---
CC: Dr. Laura Perez; Dr. Favian Huerta * DISCHARGE SUMMARY: DATE OF ADMISSION: 04/13/19 DATE OF DISCHARGE: 04/18/19 PRIMARY CARE PROVIDER: Dr. Laura Perez. UROLOGIST: Dr. Favian Huerta. DISCHARGE DIAGNOSES: 1. Escherichia coli urinary tract infection. 2. Left ureteral stone causing hydronephrosis, status post stent placement. 3. Cachexia, with a BMI of 15.9. 4. Paroxysmal atrial fibrillation. 5. Sepsis. SECONDARY DIAGNOSES: 1. Hypertension. 2. Hyperlipidemia. 3. Lupus. 4. Partial seizure with secondary generalization, status post temporal lobectomy and hippocampal resection. 5. Anemia. 6. Osteoporosis. 7. Status post cholecystectomy. 8. Status post left total hip replacement. MEDICATION LIST: 1. Aspirin 325 mg p.o. daily. 2. Premarin vaginal cream, apply to vagina at bedtime. 3. Ferrous sulfate 1 tablet p.o. b.i.d. 4. Fluticasone nasal spray 50 mcg 2 sprays to both nares daily. 5. Folic acid 1 mg p.o. daily. 6. Plaquenil 20 mg p.o. daily. 7. Ibuprofen 2 tablets p.o. q.4 hours p.r.n. pain or fever. 8. Lisinopril 5 mg p.o. daily. 9. Lovastatin 80 mg p.o. at bedtime. 10. Fish oil 3 tablets p.o. at bedtime. 11. Omeprazole 20 mg p.o. daily as needed for indigestion. 12. Oxcarbazepine 300 mg p.o. b.i.d. 13. MiraLAX 1 capsule p.o. daily as needed for constipation. 14. Pseudoephedrine 60 mg p.o. daily p.r.n. for nasal congestion. 15. Tacrolimus ointment topical daily. 16. Tamsulosin 0.4 mg p.o. daily. 17. Vitamin B 1000 units p.o. daily. 18. Zonisamide 300 mg p.o. b.i.d. New Medications: 1. Metoprolol succinate 50 mg p.o. daily. 2. Cefuroxime 250 mg p.o. q.12 hours for 10 more days. HOSPITAL COURSE: Mrs. Butler is a 63-year-old lady with a past medical history as stated above, who presented to the emergency room with complaints of left upper quadrant pain, radiating to her back that had started on the day of admission. For more details about her presentation, I refer you to her history and physical. In the emergency room, the patient had a CT of the abdomen and pelvis that showed moderately obstructing 7-mm calculus to the proximal third left ureter, bilateral nephrolithiasis, mild emphysema and constipation. The patient was seen in consultation by Urology (Dr. Huerta) and she was taken to the OR on April 14, 2019, where she underwent cystoscopy with placement of left ureteral stent. Of note, is the fact the patient was noted to be lethargic and she had an EEG done that showed an abnormal awake and drowsy EEG, but there was no electrographic seizures. After surgery, the patient did well, was awake and talking to her sister. She developed leucocytosis in the postop period. The patient's urine culture grew E. coli and she was on ceftriaxone with resolution of her leukocytosis. The E. coli was resistant to ampicillin only. Initially during her hospital stay, there was an episode of paroxysmal atrial fibrillation. This is documented as being her second episode of AFib and Dr. Maciel discussed with the patient the indication for anticoagulation, but the patient states that she is afraid of having an intracranial bleed and would prefer to continue just on aspirin. I did explain to the patient that her aspirin and ibuprofen that she takes as an outpatient also increase her bleeding risk and do not offer enough protection against the stroke. She would like to discuss it further with her primary care provider and specially with Dr. Oliveira before making any decisions about starting anticoagulation. She is aware of the risk of stroke. Her CHADSVASC2 is 5 (gender, age, history of CVA, and hypertension), predicting a 7.2% per year risk of stroke. The patient verbalized understanding of the information including the risk of stroke, permanent disability and , but states that she would like to discuss with Dr. Oliveira especially if she should be on anticoagulation or not. Metoprolol was added to her regimen and the patient converted to normal sinus rhythm. Her atrial fibrillation was likely associated with her urinary tract infection. Her blood pressure has tolerated medications well, but as outpatient her PCP may need to optimize her metoprolol and she may need a lower dose as she continues to improve. The patient wears a dressing on the left side of her skull. She states that sometime to surgical scar will "open up." I examined the area and at this point she has no open areas, no bleeding, or any drainage. As part of the workup for her atrial fibrillation, the patient had a transthoracic echocardiogram performed that showed an ejection fraction of 55% to 60% with normal wall motion and no significant valvular disease and there was no significant change when compared to her prior echo from 2011. The patient was noted to be cachectic with a BMI of 15. Her weight was documented as 114 last year she is now down to [address] Maciel was concerned that the patient could have anorexia nervosa or even a hidden malignancy, so further workup could be performed by her PCP as outpatient as she sees indicated. Of note, is the fact that her albumin during this hospital stay was normal at 4.3. The patient is medically stable to be discharged home today to followup with her PCP, Dr. Perez; Dr. Oliveira; and with Urology, Dr. Huerta as outpatient. PHYSICAL EXAMINATION: Vital Signs: Temperature 97.9, heart rate is 81, respiratory rate is 16, oxygen saturation is 100% on room air, blood pressure is 115/69. General: The patient is an elderly lady, sitting up in the bed, in no acute distress. CVS: Normal S1, S2. Regular rate and rhythm. Chest: Breath sounds present bilaterally with no added sounds. Neuro: She is alert and oriented x3. Able to move all 4 extremities. DIET: Regular diet. ACTIVITIES: As tolerated. DISPOSITION: To home. STATUS WHILE IN THE HOSPITAL: Inpatient. Please keep in mind this is a summarized version of this patient's hospital stay. If you need more information, please feel free to call me at [phone] or please obtain full medical records. I did contact Dr. Huerta's office to inform about her discharge and the office will be contacting her at home. TIME SPENT: Approximately 50 minutes was spent to complete this discharge. [id number]/[facility] #: [id number] KIMI
== END 2019-04-18 15:40 | disposition home or self-care (01) | DRG 854 ==
LOC: ED 18:45 → MED 23:55
PROVIDERS: ADMIT Internal Medicine; ATTEND Internal Medicine
PROC: BT1FYZZ Fluoroscopy of Left Kidney, Ureter and Bladder using Other Contrast (ICD-10-PCS; 2019-04-14)
PROC: 0T778DZ Dilation of Left Ureter with Intraluminal Device, Via Natural or Artificial Opening Endoscopic (ICD-10-PCS; principal; 2019-04-14 12:30)
DX: A41.9 Sepsis, unspecified organism (principal); N13.2 Hydronephrosis with renal and ureteral calculous obstruction; R64 Cachexia; N39.0 Urinary tract infection, site not specified; E46 Unspecified protein-calorie malnutrition; N17.9 Acute kidney failure, unspecified; Z68.1 Body mass index [BMI] 19.9 or less, adult; I48.0 Paroxysmal atrial fibrillation; I10 Essential (primary) hypertension; M32.9 Systemic lupus erythematosus, unspecified; I65.29 Occlusion and stenosis of unspecified carotid artery; E78.5 Hyperlipidemia, unspecified; D64.9 Anemia, unspecified; M81.0 Age-related osteoporosis without current pathological fracture; G40.909 Epilepsy, unspecified, not intractable, without status epilepticus; B96.20 Unspecified Escherichia coli [E. coli] as the cause of diseases classified elsewhere; K59.00 Constipation, unspecified; Z16.11 Resistance to penicillins; Z96.642 Presence of left artificial hip joint; Z82.49 Family history of ischemic heart disease and other diseases of the circulatory system; Z80.0 Family history of malignant neoplasm of digestive organs; F17.210 Nicotine dependence, cigarettes, uncomplicated; Z86.73 Personal history of transient ischemic attack (TIA), and cerebral infarction without residual deficits
CPT/HCPCS: 36415; 74018; 74177; 74420; 80048; 80053; 81003; 81015; 82140; 83036; 83605; 83690; 83735; 84484; 85025; 85027; 85610; 85730; 86140; 87077; 87086; 87186; 93005; 93306; 95819; 99284; A9270-GY; C1876; C8929; J0696; J1100; J2405; J2704; J3010; J3475; J3490; Q9967

== ENCOUNTER 2019-05-09 05:42 | Day surgery (SDC) | payer MEDICARE ==
--- NOTE | 2019-04-26 10:18 | HP ---
CC: Dr. Laura Perez * UPDATED HISTORY AND PHYSICAL: DATE OF PLANNED ADMISSION AND SURGERY: 05/09/19 Please refer to the detailed history and physical and discharge summary on this patient for her admission dated 04/13/19. HISTORY OF PRESENT ILLNESS: Ms. Butler is a 64-year-old white female who is admitted with a left renal calculus, status post placement of left ureteral stent, for shockwave lithotripsy of left renal calculus and possible cystoscopy and removal of left ureteral stent. In brief, Ms. Butler was admitted with urinary tract infection and left flank pain and was noted to have a 7 mm obstructing calculus at the left ureteropelvic junction. There was a concern of associated urosepsis. Her urine culture grew E. coli sensitive to all antibiotics except ampicillin. She was taken to the operating room urgently on 04/14/19 and had a cystoscopy and insertion of left ureteral stent. Postoperative KUB showed the stent in good position and the calculus to have migrated into the renal pelvis. The patient was fully treated for her urinary infection and she has recovered from it. She is now admitted for shockwave lithotripsy of the left renal calculus and possible cystoscopy and removal of the left ureteral stent if good fragmentation of the stone is noted. PAST MEDICAL HISTORY AND SYSTEM REVIEW: As detailed in her recent records. The patient has history of seizure disorder, paroxysmal atrial tachycardia, and possible atrial fibrillation and has been maintained on aspirin 325 mg daily. She is also on multiple other medications for her other conditions. They are listed in the admission note. The aspirin will be discontinued 1 week preoperatively to avoid any renal hematoma with the procedure. Her physical examination and her medications are otherwise unchanged since her discharge. I had a long discussion with the patient regarding the above procedure. Some of the potential complications including renal hematoma, gross hematuria, postoperative renal colic were discussed. All her questions were answered. [id number]/[facility] #: [id number] [facility] HEALTH SERVICESAna
[~2019-05-09 05:42] MED LIST changes: -Buffered Lidocaine 0.9% SYRIN* 5 ML/SYR SYRINGE INTRADERM ONE; +Buffered Lidocaine 1% SYRIN* 1 ML/SYRINGE INTRADERM ONE; -Bupivacaine 0.25% SDV* 30 ML ONE; -Famotidine IV* 10 MG/ML 2 ML (20 mg) IV ONE; -Lidocaine 1% INJ* 10 MG/ML 30 ML SDV ONE; -ROPIVACAINE 5 MG/ML 30 ML BTL (0.5%) ONE
[2019-05-09] MEDS ORDERED: Lactated Ringers 1000 ML Bag* 1,000 ML IV SCH (06:00)
[2019-05-09] MEDS ORDERED: Buffered Lidocaine 1% SYRIN* 1 ML/SYRINGE INTRADERM ONE (06:25)
[2019-05-09] MEDS ORDERED: cefTRIAXone(*) 1 GM ADVAN/BAG ONE (06:25)
[2019-05-09] MEDS ORDERED: Propofol* 10 MG/ML 20 ML BTL ONE (07:47)
[2019-05-09] MEDS ORDERED: Midazolam* 1 MG/ML 2 ML VIAL (2 MG) ONE (07:47)
[2019-05-09] MEDS ORDERED: fentaNYL* 50 MCG/ML 2 ML VIAL (100 MCG VIAL) ONE (07:47)
[2019-05-09] MEDS ORDERED: Ondansetron INJ* 2 MG/ML VIAL IV PRN (08:27)
[2019-05-09] MEDS ORDERED: Naloxone* 0.4 MG/ML 1 ML VIAL IV PRN (08:27)
[2019-05-09] MEDS ORDERED: fentaNYL* 50 MCG/ML 2 ML VIAL (100 MCG VIAL) IV PRN (08:27)
[2019-05-09 09:21] VITALS: BP 192/108
--- NOTE | 2019-05-09 10:13 | OP ---
CC: Dr. Laura Perez * DATE OF OPERATION: 05/09/19 - SDS DATE OF : 51 SURGEON: Dr. Huerta. ANESTHESIOLOGIST: Dr. Daniel Vital. ANESTHESIA: General. PRE-OP DIAGNOSES: 1. Left renal calculus (6 mm). 2. Status post placement of left ureteral stent. OPERATIVE PROCEDURES: 1. Shockwave lithotripsy of left renal calculus. 2. Cystoscopy and removal of left ureteral stent. INDICATION FOR PROCEDURE: Mrs. Butler is a 64-year-old white female who presented about 3 weeks ago with left renal colic associated with urinary tract infection. A CT showed a 6- to 7-mm calculus at the left ureteropelvic junction. She had urgent placement of left ureteral stent. Postoperative KUB showed the stone to have migrated into the upper part of the renal pelvis. The patient is now brought in for definitive treatment of the stone. PATHOLOGY: Preoperative KUB showed the left ureteral stent in good position and a 6-mm radiopaque calculus in the renal pelvis above the stent. DESCRIPTION OF PROCEDURE: After successful general anesthesia, the patient was placed in the supine position on the shockwave lithotripsy table. The left renal calculus was visualized in both the PA and oblique x-ray views and the position of the patient and the generator was adjusted to have the stone in the focus of the shockwaves. A total of 2000 shocks were then delivered at a rate of 60 shocks per minute. A 2- minute break was taken after the initial 300 shocks. The proper positioning and fragmentation of the stone were monitored periodically. At 2000 shocks, there seemed to be adequate fragmentation of the stone. Decision was then made to proceed with the stent removal. The patient was placed in the frog-leg position and was prepped and draped for a cystoscopy. Cystoscopy was performed. The urine that was drained was clear. The stent was removed intact. The patient tolerated the procedure well and left the operating room in good condition. [id number]/[facility] #: [id number] MTDD
[2019-05-09] MEDS ORDERED: Ondansetron INJ* 2 MG/ML VIAL ONE (10:26)
== END 2019-05-09 17:37 | disposition home or self-care (01) ==
LOC: OR 05:42
PROVIDERS: ATTEND Urology
DX: N20.0 Calculus of kidney (principal); I10 Essential (primary) hypertension; Z72.0 Tobacco use; K21.9 Gastro-esophageal reflux disease without esophagitis; I65.23 Occlusion and stenosis of bilateral carotid arteries
CPT/HCPCS: 74018; 82365; 88300; J0696; J2250; J2405; J2704; J3010